=== PATIENT | female | born 1940 | race Two or more races ===

== ENCOUNTER 2016-11-13 21:15 | Observation (INO) | payer MEDICARE, OTHER ==
--- NOTE | 2016-11-13 21:48 | ED PDOC ---
Arrival/HPI - General Chief Complaint: Dizziness/Lightheaded Time Seen by Provider: 11/13/16 21:31 Historian: Patient - History of Present Illness Narrative History of Present Illness (Text): 11/13/16 21:48 Kika Maradiaga is a 76 year old female, whose past medical history includes hypertension, who presents to the Emergency department accompanied by family complaining of near-syncope. Grandson states patient has been generally unwell for the past 15 days, but notes tonight patient was brushing her teeth at home when she began feeling near-syncopal, light-headed, and dizzy. Grandson states patient was also complaining of palpitations and lower extremity weakness/ tingling during the episode. Patient reports a headache currently. Patient denies any fever, shortness of breath, abdominal pain, vomiting, diarrhea, urinary symptoms, back pain, neck pain, vision changes, or any other complaints. PMD: Dr. Alexia Acosta Symptom Onset: Gradual Symptom Course: Worsening Activities at Onset: Rest, Light Context: Home Past Medical History - Provider Review Nursing Documentation Reviewed: Yes - Infectious Disease Hx of Infectious Diseases: None - Reproductive Menopause: Yes - Cardiac Hx Hypertension: Yes - Neurological Hx Dizziness: Yes - Psychiatric Hx Substance Use: No - Surgical History Other/Comment: left breat lump removed - Anesthesia Hx Anesthesia: Yes Hx Anesthesia Reactions: No Hx Malignant Hyperthermia: No Family/Social History - Physician Review Nursing Documentation Reviewed: Yes Family/Social History: Unknown Family HX Smoking Status: Never Smoked Hx Alcohol Use: No Hx Substance Use: No Allergies/Home Meds Allergies/Adverse Reactions: Allergies pcn Adverse Reaction (Uncoded 11/13/16 21:25) RASH Home Medications: Home Meds Medication Instructions Recorded Confirmed Hydrochlorothiazide [Microzide] 12.5 mg PO DAILY 11/13/16 11/15/16 Propranolol HCl [Propranolol HCl 60 mg PO DAILY 11/13/16 11/15/16 ER] Review of Systems - Physician Review All systems were reviewed & negative as marked: Yes - Review of Systems Constitutional: Normal. absent: Fevers Eyes: Normal ENT: Normal Respiratory: Normal. absent: SOB, Cough Cardiovascular: Palpitations, Other (+near-syncope) Gastrointestinal: Normal. absent: Abdominal Pain, Diarrhea, Nausea, Vomiting Genitourinary Female: Normal Musculoskeletal: Other (+lower extremity weakness). absent: Back Pain, Neck Pain Skin: Normal Neurological: Headache, Dizziness Endocrine: Normal Hemo/Lymphatic: Normal Psychiatric: Normal Physical Exam Vital Signs Reviewed: Yes Vital Signs Temp Pulse Resp BP Pulse Ox 11/13/16 23:55 69 18 146/83 96 11/13/16 22:24 83 18 152/95 H 99 11/13/16 21:17 98.3 F 88 19 180/101 H 98 Temperature: Afebrile Blood Pressure: Hypertensive Pulse: Regular Respiratory Rate: Normal Appearance: Positive for: Well-Appearing, Non-Toxic, Comfortable Pain Distress: None Mental Status: Positive for: Alert and Oriented X 3 - Systems Exam Head: Present: Atraumatic, Normocephalic Pupils: Present: PERRL Extroacular Muscles: Present: EOMI Conjunctiva: Present: Normal Ears: Present: Normal, NORMAL TM, Normal Canal. No: Erythema Mouth: Present: Moist Mucous Membranes Pharnyx: Present: Normal. No: ERYTHEMA, EXUDATE, TONSILS ENLARGED Neck: Present: Normal Range of Motion. No: Meningeal Signs, MIDLINE TENDERNESS , Paraspinal Tenderness Respiratory/Chest: Present: Clear to Auscultation, Good Air Exchange. No: Respiratory Distress, Accessory Muscle Use Cardiovascular: Present: Regular Rate and Rhythm, Normal S1, S2. No: Murmurs Abdomen: Present: Normal Bowel Sounds. No: Tenderness, Distention, Peritoneal Signs Back: Present: Normal Inspection. No: CVA Tenderness, Midline Tenderness, Paraspinal Tenderness Upper Extremity: Present: Normal Inspection. No: Cyanosis, Edema Lower Extremity: Present: Normal Inspection. No: Edema Neurological: Present: GCS=15, CN II-XII Intact, Speech Normal Skin: Present: Warm, Dry, Normal Color. No: Rashes Psychiatric: Present: Alert, Oriented x 3, Normal Insight, Normal Concentration Medical Decision Making ED Course and Treatment: 11/13/16 21:48 Impression: 76 year old female complaining of near-syncope, dizziness, generalized weakness , and palpitations. Differential Diagnosis included but are not limited to: near-syncope vs. ACS vs. electrolyte abnormality vs. infectious process. Plan: -- CT Head w/o contrast -- EKG -- Chest X-ray -- Labs, troponin -- Urinalysis -- Reassess and disposition Progress Notes: Reviewed EKG, sinus rhythm at [address]pm[address] PAC. Non-specific ST/T wave changes. 11/13/16 22:57 Reviewed radiology, Chest X-ray shows no acute processes. 11/13/16 23:[address] Head, shows: 1. No acute intracranial hemorrhage or acute territorial type infarct. 2. There are scattered foci of hypodensity within the cerebral white matter, likely representing small vessel ischemic disease in a patient this age. 3. Slight atrophy. 11/14/16 00:28 Case discussed with medical csr, who is aware and agrees with plan. House physician paged. 11/14/16 00:[address] Frederick, who is aware and agrees with plan. Accepts pt in to hospitalist service. Pt will go to Telemetry observation for near-syncope. Pt is no acute distress. Discussed results and hospital observation plan with pt and family, who are aware and verbalize understanding. - Lab Interpretations Microbiology Results: Microbiology Results 11/13/16 23:00 Urine,Clean Catch Urine Culture - Final No Growth (<1,000 CFU/ML) Lab Results: 11/13/16 21:55 11/13/16 21:55 Lab Results 11/13/16 23:00: Urine Color Yellow, Urine Appearance Clear, Urine pH 6.5, Ur Specific [place] 1.010, Urine Protein Negative, Urine Glucose (UA) Negative, Urine Ketones Negative, Urine Blood Trace-lysed H, Urine Nitrate Negative, Urine Bilirubin Negative, Urine Urobilinogen 0.2, Ur Leukocyte Esterase Small H , Urine RBC 0 - 2, Urine WBC 0 - 2, Ur Epithelial Cells None, Urine Bacteria Small 11/13/16 21:55: PT 10.2, INR 0.94, APTT 27.5 11/13/16 21:55: WBC 7.3, RBC 4.04, Hgb 11.9 L, Hct 35.2 L, MCV 87.1, MCH 29.5, MCHC 33.8, RDW 12.7, Plt Count 208, MPV 11.0, Gran % 62.7, Lymph % (Auto) 22.0, Desha % (Auto) 6.5 H, Eos % (Auto) 8.4 H, Baso % (Auto) 0.4, Gran # 4.56, Lymph # 1.6, Desha # 0.5, Eos # 0.6, Baso # 0.03 11/13/16 21:55: Sodium 139, Potassium 3.9, Chloride 100, Carbon Dioxide 27, Anion Gap 16, BUN 31 H, Creatinine 1.0, Est GFR ( Amer) > 60, Est GFR ( Non-Af Amer) 54, Random Glucose 137 H, Calcium 9.6, Total Bilirubin 0.3, AST 29 , ALT 26, Alkaline Phosphatase 99, Troponin I < 0.01, Total Protein 8.2, Albumin 4.5, Globulin 3.7, Albumin/Globulin Ratio 1.2 I have reviewed the lab results: Yes - RAD Interpretation Narrative RAD Interpretations (Text): Chest X-ray shows no acute processes. Radiology Orders: 11/13/16 21:48 HEAD W/O CONTRAST [CT] Stat 11/13/16 21:49 CHEST PORTABLE [RAD] Stat Dog Raiser: ED Physician, Radiologist - EKG Interpretation EKG Interpretation (Text): CT Head shows: Brain: There are scattered foci of hypodensity within the cerebral white matter , likely representing small vessel ischemic disease in a patient this age. The acuity of the white matter disease is indeterminate. The white-hill differentiation is preserved demonstrating no acute territorial type infarct. There is slight prominence of the ventricles and sulci, compatible with atrophy. No acute intracranial hemorrhage is seen. Midline shift: There is no midline shift. Ventricles: See above. Bones/joints: The calvarium demonstrates no evidence for a depressed fracture. Soft tissues: No acute abnormality. Vasculature: There is atherosclerotic calcification of the cavernous internal carotid arteries. Sinuses: Unremarkable as visualized. No acute sinusitis. Mastoid air cells: No mastoid effusion. IMPRESSION: 1. No acute intracranial hemorrhage or acute territorial type infarct. 2. There are scattered foci of hypodensity within the cerebral white matter, likely representing small vessel ischemic disease in a patient this age. 3. Slight atrophy. Interpreted by ED Physician: Yes Type: 12 lead EKG - Medication Orders Current Medication Orders: Discontinued Medications Acetaminophen (Tylenol 325mg Tab) 650 mg PO STAT STA Stop: 11/14/16 20:40 Last Admin: 11/14/16 20:45 Dose: 650 mg Acetaminophen (Tylenol 325mg Tab) 650 mg PO STAT STA Stop: 11/15/16 05:38 Last Admin: 11/15/16 05:54 Dose: 650 mg Amlodipine Besylate (Norvasc) 5 mg PO DAILY [facility] Last Admin: 11/15/16 12:44 Dose: 5 mg Aspirin (Ecotrin) 81 mg PO DAILY [facility] Last Admin: 11/15/16 10:12 Dose: 81 mg Enoxaparin Sodium (Lovenox) 40 mg SC DAILY [facility] PRN Reason: Protocol Last Admin: 11/15/16 10:12 Dose: 40 mg Hydrochlorothiazide (Microzide) 12.5 mg PO DAILY [facility] Last Admin: 11/15/16 10:12 Dose: 12.5 mg Sodium Chloride (Sodium Chloride 0.9%) 500 mls @ 999 mls/hr IV .Q31M STA Stop: 11/14/16 01:59 Last Admin: 11/14/16 02:05 Dose: 999 mls/hr Sodium Chloride (Sodium Chloride 0.9%) 1,000 mls @ 100 mls/hr IV .Q10H [facility] Last Admin: 11/15/16 08:00 Dose: Pantoprazole Sodium (Protonix Ec Tab) 40 mg PO 0600 [facility] Last Admin: 11/15/16 05:05 Dose: 40 mg Potassium Chloride (Potassium Chloride Oral Soln) 40 meq PO ONCE ONE Stop: 11/15/16 08:50 Last Admin: 11/15/16 10:12 Dose: 40 meq Propranolol HCl (Inderal La) 60 mg PO DAILY [facility] Last Admin: 11/15/16 10:20 Dose: 60 mg - Lisaibpatricia Statement The provider has reviewed the documentation as recorded by the Frida Sanchez All medical record entries made by the Frida were at my direction and personally dictated by me. I have reviewed the chart and agree that the record accurately reflects my personal performance of the history, physical exam, medical decision making, and the department course for this patient. I have also personally directed, reviewed, and agree with the discharge instructions and disposition. Disposition/Present on Arrival - Present on Arrival Any Indicators Present on Arrival: No History of DVT/PE: No History of Uncontrolled Diabetes: No Urinary Catheter: No History of Decub. Ulcer: No History Surgical Site Infection Following: None - Disposition Have Diagnosis and Disposition been Completed?: Yes Diagnosis: Near syncope Disposition: HOSPITALIZED Disposition Time: 00:30 Condition: GOOD
[2016-11-13 22:09] LABS: BASO # 0.03 K/mm3 (0.0-2.0); BASO % 0.4 % (0.0-3.0); EOS # 0.6 (0.0-0.7); EOS % 8.4 % (1.5-5.0); GRAN # 4.56 (1.4-6.5); GRAN % 62.7 % (50.0-68.0); HEMOGLOBIN 11.9 gm/dL (12.0-16.0); LYMPH # 1.6 (1.2-3.4); MEAN CELL VOLUME 87.1 fL (80.0-105.0); MEAN CORPUSCULAR HEMOGLOBIN 29.5 pg (25.0-35.0); MEAN CORPUSCULAR HGB CONC 33.8 g/dl (31.0-37.0); MONO # 0.5 (0.1-0.6); MONO % 6.5 % (1.0-6.0); PLATELET COUNT 208 10^3/uL (120.0-450.0); RBC 4.04 10^6/uL (3.5-6.1); RED CELL DISTRIBUTION WIDTH 12.7 % (11.5-14.5); WHITE BLOOD COUNT 7.3 10^3/ul (4.5-11.0)
[2016-11-13 22:19] LABS: INR 0.94 (0.93-1.08); PARTIAL THROMBOPLASTIN TIME 27.5 Seconds (23.7-30.8); PROTHROMBIN TIME 10.2 Seconds (9.9-11.8)
[2016-11-13 22:20] LABS: ALB/GLOB RATIO 1.2 (1.1-1.8); ALBUMIN 4.5 g/dL (3.0-4.8); ALT/SGPT 26 U/L (7-56); AST/SGOT 29 U/L (15-39); BLOOD UREA NITROGEN 31 mg/dL (7-21); CALCIUM 9.6 mg/dL (8.4-10.5); GFR AFRICAN-AMERICAN > 60; GFR NON-AFRICAN AMERICAN 54
[2016-11-13 22:34] LABS: TROPONIN I < 0.01 ng/mL
--- NOTE | 2016-11-13 23:21 | CT ---
EXAM: CT Head Without Intravenous Contrast CLINICAL HISTORY: The patient age is 76 years old and is female; Signs and symptoms; Dizziness; Patient HX: Dizzy Facility exam id and description: Ct heads head w/o contrast TECHNIQUE: Axial computed tomography images of the head/brain without intravenous contrast. This CT exam was performed using one or more of the following dose reduction techniques: automated exposure control, adjustment of the mA and/or kV according to patient size, and/or use of iterative reconstruction technique. EXAM DATE/TIME: 11/13/2016 9:48 PM COMPARISON: No relevant prior studies available. FINDINGS: Brain: There are scattered foci of hypodensity within the cerebral white matter, likely representing small vessel ischemic disease in a patient this age. The acuity of the white matter disease is indeterminate. The white-hill differentiation is preserved demonstrating no acute territorial type infarct. There is slight prominence of the ventricles and sulci, compatible with atrophy. No acute intracranial hemorrhage is seen. Midline shift: There is no midline shift. Ventricles: See above. Bones/joints: The calvarium demonstrates no evidence for a depressed fracture. Soft tissues: No acute abnormality. Vasculature: There is atherosclerotic calcification of the cavernous internal carotid arteries. Sinuses: Unremarkable as visualized. No acute sinusitis. Mastoid air cells: No mastoid effusion. IMPRESSION: 1. No acute intracranial hemorrhage or acute territorial type infarct. 2. There are scattered foci of hypodensity within the cerebral white matter, likely representing small vessel ischemic disease in a patient this age. 3. Slight atrophy.
[2016-11-13 23:25] LABS: PH,URINE 6.5 (4.7-8.0); URINE BILIRUBIN NEGATIVE (NEGATIVE); URINE BLOOD TRACE-LYSED (NEGATIVE); URINE GLUCOSE (UA) NEGATIVE (NEGATIVE); URINE LEUKOCYTE ESTERASE SMALL Leu/uL (NEGATIVE); URINE NITRATE NEGATIVE (NEGATIVE); URINE PROTEIN NEGATIVE mg/dL (<30 mg/dL); URINE UROBILINOGEN 0.2 E.U./dL (<1 E.U./dL)
[2016-11-13 23:30] LABS: URINE APPEARANCE CLEAR (CLEAR); URINE COLOR YELLOW (YELLOW)
[2016-11-14 00:12] LABS: URINE BACTERIA SMALL (NEG); URINE RBC 0 - 2 /hpf (0-2); URINE WBC 0 - 2 /hpf (0-6)
[2016-11-14] MEDS ORDERED: Sodium Chloride 0.9% 500 ML IV STA (01:29)
[2016-11-14] MEDS: Sodium Chloride 0.9% 1,000 ML IV SCH ×4 (02:53→23:00)
--- NOTE | 2016-11-14 04:50 | CP.PCM.HP ---
<KERA YOU - Last Filed: 11/14/16 04:31> History of Present Illness - History of Present Illness History of Present Illness: 76 yo F with pMHx of HTN, migraines, and HLP c/o of near syncopal episode. Pt's daughter was at bedside with the pt. The daughter states that the patient was brushing her teeth at home this evening when she began to feel dizzy, nauseous, and legs felt tingly and weak. Pt denies fall or losing conciousness, but admits to palpatations and felt as if her BP increased during the near syncopal episode. Pt states that she has felt somewhat lightheaded for the past 2 weeks, but not as severe as today. Pt denies any alleviating or aggravating factors. Pt PMD is Dr. Imelda Acosta, who manages pt's HTN. Pt stated that Dr. Acosta recently changed her propranolol from daily to BID as a trial to control her HTN. Pt reports current CABRERA, but denies CP, SOB, n/v/f, abdominal pain, or changes in vision/hearing. pMHx: HTN, migraines, osteoporosis, HLP, prediabetes Surg: left lumpectomy FHx: unknown SH: denied tobacco, EtOH, or illicit drug use All: Penicillin Medications: HCTZ 12.5 mg PO daily Propranolol 60 mg PO BID Aspirin 81 mg daily Crestor (unknown dose) Present on Admission - Present on Admission Any Indicators Present on Admission: No Review of Systems - Constitutional Constitutional: Fatigue, Headache. absent: Anorexia, Chills, Fever, Frequent Falls, Weakness - EENT Eyes: absent: Blurred Vision, Change in Vision, Pain Ears: absent: Decreased Hearing, Tinnitus, Abnormal Hearing Nose/Mouth/Throat: absent: Change in Voice, Odynophagia, Facial Pain, Neck Pain - Cardiovascular Cardiovascular: Palpitations. absent: Chest Pain, Chest Pain at Rest, Diaphoresis, Dyspnea, Leg Edema - Respiratory Respiratory: absent: Cough, Dyspnea, Hemoptysis, Wheezing - Gastrointestinal Gastrointestinal: absent: Abdominal Pain, Change in Bowel Habits - Genitourinary Genitourinary: absent: Dysuria, Hematuria - Musculoskeletal Musculoskeletal: absent: Arthralgias, Muscle Weakness, Stiffness - Integumentary Integumentary: absent: Lesions, Pruritus, Rash - Neurological Neurological: Dizziness, Headaches, Syncope (near syncopal), Tingling (b/l LE). absent: Numbness, Frequent Falls, Memory Loss, Paresthesias, Sensory Deficit - Endocrine Endocrine: absent: Cold Intolorance, Heat Intolorance, Polydipsia, Polyphagia, Polyuria Past Patient History - Infectious Disease Hx of Infectious Diseases: None - Past Social History Smoking Status: Never Smoked - CARDIAC Hx Hypertension: Yes - NEUROLOGICAL Hx Dizziness: Yes - PSYCHIATRIC Hx Substance Use: No - SURGICAL HISTORY Other/Comment: left breat lump removed - ANESTHESIA Hx Anesthesia: Yes Hx Anesthesia Reactions: No Hx Malignant Hyperthermia: No Meds Allergies/Adverse Reactions: Allergies Allergy/AdvReac Type Severity Reaction Status Date / Time pcn AdvReac RASH Uncoded 11/13/16 21:25 Physical Exam - Head Exam Head Exam: ATRAUMATIC, NORMOCEPHALIC - Eye Exam Eye Exam: EOMI, Normal appearance, PERRL - ENT Exam ENT Exam: Mucous Membranes Moist - Neck Exam Neck exam: Positive for: Full Rom - Respiratory Exam Respiratory Exam: Clear to Auscultation Bilateral. absent: Rales, Rhonchi, Wheezes - Cardiovascular Exam Cardiovascular Exam: RRR, +S1, +S2. absent: Diastolic murmur, Gallop, Rubs, Systolic Murmur - GI/Abdominal Exam GI & Abdominal Exam: Normal Bowel Sounds, Soft. absent: Distended, Guarding, Tenderness - Extremities Exam Extremities exam: Positive for: full ROM - Back Exam Back exam: NORMAL INSPECTION - Neurological Exam Neurological exam: Alert, Oriented x3 - Psychiatric Exam Psychiatric exam: Normal Affect - Skin Skin Exam: Dry, Intact, Normal Color, Warm Results - Vital Signs Recent Vital Signs: Last Vital Signs Temp 98.3 F 11/13/16 21:17 Pulse 69 11/13/16 23:55 Resp 18 11/13/16 23:55 BP 146/83 11/13/16 23:55 Pulse Ox 96 11/13/16 23:55 - Labs Result Diagrams: 11/13/16 21:55 11/13/16 21:55 Assessment & Plan - Assessment and Plan (Free Text) Assessment: 76 yo F with pMHx of HTN, migraines, and HLP presents c/o near syncopal episode. Pt will be admitted to r/o any possible underlying causes for near syncopal episode. 1. Near-syncopal episode -R/O cardiogenic vs neurogenic vs electrolyte abnormality -Consult cardiology -EKG shows abnormal rhythm --> repeat EKG in AM -Echocardiogram ordered -Cont ASA -Trend troponin -Monitor electrolytes -Orthostatics pending 2. Dehydration -NS 500ml bolus, then NS@100ml/hr -Monitor BUN/Cr 3. HTN -Cont Propranolol and HCTZ -Check vitals q6h -Heart healthy diet 4. GI/DVT PPx -Lovenox 40 mg SC -Protonix 40 mg PO Pt was seen and discussed in detail with Dr. Frederick. <Jak Frederick - Last Filed: 11/14/16 05:14> Results - Vital Signs Recent Vital Signs: Last Vital Signs Temp 98.3 F 11/13/16 21:17 Pulse 69 11/13/16 23:55 Resp 18 11/13/16 23:55 BP 146/83 11/13/16 23:55 Pulse Ox 96 11/13/16 23:55 - Labs Result Diagrams: 11/13/16 21:55 11/13/16 21:55 Attending/Attestation - Attestation I have personally seen and examined this patient.: Yes I have fully participated in the care of the patient.: Yes I have reviewed all pertinent clinical information: Yes Notes (Text): 11/14/16 05:13 Patient was seen when she was in [id number]. Spoke to daughter. Agree with history , physical examination, assessment and plan.
[2016-11-14 05:43] VITALS: BMI 22.6
[2016-11-14] MEDS: Pantoprazole 40 mg EC Tab PO SCH (05:57)
--- NOTE | 2016-11-14 08:34 | CARD ---
APPROVED REPORT EKG Measurement Heart [id number] [place] [id number] [id number] <Conclusion> Sinus bradycardia LVH by voltage Prolonged QTc
--- NOTE | 2016-11-14 08:48 | CARD ---
APPROVED REPORT EKG Measurement Heart [id number] [place] [id number] [id number] <Conclusion> Sinus rhythm with premature atrial complexes STTW changes c/w ischemia Prolonged QTc
--- NOTE | 2016-11-14 08:51 | RAD ---
HISTORY: dizzy COMPARISON: No prior. FINDINGS: LUNGS: No active pulmonary disease. PLEURA: No significant pleural effusion identified, no pneumothorax apparent. CARDIOVASCULAR: Normal. OSSEOUS STRUCTURES: No significant abnormalities. VISUALIZED UPPER ABDOMEN: Normal. OTHER FINDINGS: None. IMPRESSION: No active disease.
[2016-11-14] MEDS: Enoxaparin 40 mg Syringe SC SCH (10:09)
[2016-11-14] MEDS: Propranolol 60 mg ER Cap PO SCH (11:32)
--- NOTE | 2016-11-14 13:02 | CP.PCM.CON ---
History of Present Illness - History of Present Illness History of Present Illness: 76 year old female, whose past medical history includes hypertension and hyperlipdemia, presents to the Emergency department complaining of dizziness. Grandson states patient has been generally unwell for the past 15 days, complaining of palpitations and lower extremity weakness/tingling during the episode. Patient denies any fever, shortness of breath, abdominal pain, vomiting, diarrhea, urinary symptoms, back pain, neck pain, vision changes, Past Patient History - Infectious Disease Hx of Infectious Diseases: None - Past Social History Smoking Status: Never Smoked - CARDIAC Hx Hypertension: Yes - NEUROLOGICAL Hx Dizziness: Yes - HEENT Hx Cataracts: Yes (b/l cataract sx) - MUSCULOSKELETAL/RHEUMATOLOGICAL Hx Falls: No - PSYCHIATRIC Hx Substance Use: No - SURGICAL HISTORY Other/Comment: left breat lump removed - ANESTHESIA Hx Anesthesia: Yes Hx Anesthesia Reactions: No Hx Malignant Hyperthermia: No Meds Allergies/Adverse Reactions: Allergies Allergy/AdvReac Type Severity Reaction Status Date / Time pcn AdvReac RASH Uncoded 11/13/16 21:25 - Medications Medications: Current Medications Aspirin (Ecotrin) 81 mg PO DAILY [facility] Last Admin: 11/14/16 10:09 Dose: 81 mg Enoxaparin Sodium (Lovenox) 40 mg SC DAILY [facility] PRN Reason: Protocol Last Admin: 11/14/16 10:09 Dose: 40 mg Hydrochlorothiazide (Microzide) 12.5 mg PO DAILY [facility] Last Admin: 11/14/16 10:08 Dose: 12.5 mg Sodium Chloride (Sodium Chloride 0.9%) 1,000 mls @ 100 mls/hr IV .Q10H [facility] Last Admin: 11/14/16 12:32 Dose: Not Given Pantoprazole Sodium (Protonix Ec Tab) 40 mg PO 0600 [facility] Last Admin: 11/14/16 05:57 Dose: 40 mg Propranolol HCl (Inderal La) 60 mg PO DAILY [facility] Last Admin: 11/14/16 11:32 Dose: Not Given Physical Exam - Head Exam Head Exam: NORMAL INSPECTION - Eye Exam Eye Exam: Normal appearance - ENT Exam ENT Exam: Normal Exam - Neck Exam Neck exam: Positive for: Normal Inspection - Respiratory Exam Respiratory Exam: NORMAL BREATHING PATTERN - Cardiovascular Exam Cardiovascular Exam: REGULAR RHYTHM - GI/Abdominal Exam GI & Abdominal Exam: Soft - Extremities Exam Extremities exam: Positive for: normal inspection Results - Vital Signs Recent Vital Signs: Last Vital Signs Temp 98.6 F 11/14/16 11:42 Pulse 55 L 11/14/16 11:42 Resp 18 11/14/16 11:42 BP 132/80 11/14/16 11:42 Pulse Ox 99 11/14/16 06:00 - Labs Result Diagrams: 11/13/16 21:55 11/13/16 21:55 Labs: Laboratory Results - last 24 hr 11/14/16 11:30 TSH 3rd Generation 5.95 H Assessment & Plan - Assessment and Plan (Free Text) Assessment: Dizziness and near Syncope EKG NSR, NS ST/T changes Head CT scan Small vessel disease HTN Hyperlipdemia R/O hypothyroidism Plan: Cont Aspirin (Ecotrin) 81 mg PO DAILY [facility] Enoxaparin Sodium (Lovenox) 40 mg SC DAILY [facility] Hydrochlorothiazide (Microzide) 12.5 mg PO DAILY [facility] Sodium Chloride (Sodium Chloride 0.9%) 1,000 mls @ 100 mls/hr IV .Q10H [facility] Pantoprazole Sodium (Protonix Ec Tab) 40 mg PO 0600 [facility] Propranolol HCl (Inderal La) 60 mg PO DAILY [facility] Tele monitering Echo Carotid doppler
--- NOTE | 2016-11-14 13:38 | CP.PCM.CON ---
History of Present Illness - History of Present Illness History of Present Illness: NEURO CONSULT NOTE: 11/14/16 CHIEF COMPLAINT: DIZZINESS. HPI: Mrs. Manley is a 76 year old woman with pMHx of HTN, migraines, and HLP c/o of near syncopal episode. Pt's daughter was at bedside with the pt. The daughter states that the patient was brushing her teeth at home this evening when she began to feel dizzy, nauseous, and legs felt tingly and weak. Pt denies fall or losing conciousness, but admits to palpatations and felt as if her BP increased during the near syncopal episode. Pt states that she has felt somewhat lightheaded for the past 2 weeks, but not as severe as today. Pt denies any alleviating or aggravating factors. Pt PMD is Dr. Imelda Acosta, who manages pt's HTN. Pt stated that Dr. Acosta recently changed her propranolol from daily to BID as a trial to control her hypertension. NEURO EXAM IS NON-FOCAL. CURRENTLY NO MORE DIZZINESS. HER INITIAL BP WAS SYSTOLICALLY ELEVATED, BUT NOW STABILIZED. ROS: 14 POINT REVIEW OF SYMPTOMS IS NEGATIVE PER HPI. ALLERGIES: NONE SOCIAL HISTORY: NO ILLICIT DRUG USE, SMOKING, OR ETOH USE. FAMILY: NON CONTRIBUTORY. MEDICATIONS: REVIEWED BY NURSE'S RECONCILIATION SHEET. PAST MEDICAL HISTORY: HEADACHES PHYSICAL EXAM: VITAL SIGNS: REVIEWED BY THE CHART GENERAL EXAM: PATIENT SEEN IN BED, IN NO ACUTE DISTRESS HEENT: PERRLA, EOMI, NECK SUPPLE, NO JVD, NO ADENOPATHY CVS: S1, S2, RRR, NO MURMURS NOTED LUNGS: CLEAR TO AUSCULTATION, NO ADVENTITIOUS SOUNDS ABDOMEN: SOFT AND NONTENDER EXTREMITIES: NO CLUBBING OR CYANOSIS. PP 2+ B/L NEURO: PT IS ALERT AND ORIENTED TO PERSON, PLACE, AND YEAR. , RECALL TO 5 MINUTES 1/3, SPEECH IS FLUENT WITHOUT ERRORS, CN II-XII INTACT, MOTOR EXAM: NORMAL TONE, NORMAL BULK OF MUSCLE, MOVES ALL EXTREMITIES EQUALLY, NO PRONATOR DRIFT SEEN. SENSORY EXAM: LIGHT TOUCH, PIN PRICK UP TO CALVES B/L, PROPRIOCEPTION , VIBRATION ARE INTACT B/L DEEP TENDON REFLEXES: 2+ THROUGHOUT. COORDINATION: FINGER TO NOSE IS INTACT. HEEL TO PEDRAZA IS INTACT GAIT: NORMAL. LABS: REVIEWED BY THE CHART. ASSESSMENT AND PLAN: Mrs. Manley is a 76 year old woman with pMHx of HTN, migraines, and HLP c/o of near syncopal episode. Pt's daughter was at bedside with the pt. The daughter states that the patient was brushing her teeth at home this evening when she began to feel dizzy, nauseous, and legs felt tingly and weak. Pt denies fall or losing conciousness, but admits to palpatations and felt as if her BP increased during the near syncopal episode. Pt states that she has felt somewhat lightheaded for the past 2 weeks, but not as severe as today. Pt denies any alleviating or aggravating factors. Pt PMD is Dr. Imelda Acosta, who manages pt's HTN. Pt stated that Dr. Acosta recently changed her propranolol from daily to BID as a trial to control her hypertension. NEURO EXAM IS NON-FOCAL. CURRENTLY NO MORE DIZZINESS. IMPRESSION:DIZZINESS IS MORE SECONDARY TO HTN URGENCY. 1. ASA 81 MG FOR STROKE PREVENTION 2. KEEP SBP BTW 130-140 MM HG 3. CAROTID DOPPLER AND F/U WITH CARDIOLOGY. SHE IS NEUROLOGICALLY STABLE. THANK YOU. Cathy PEACOCK MD Past Patient History - Infectious Disease Hx of Infectious Diseases: None - Past Social History Smoking Status: Never Smoked - CARDIAC Hx Hypertension: Yes - NEUROLOGICAL Hx Dizziness: Yes - HEENT Hx Cataracts: Yes (b/l cataract sx) - MUSCULOSKELETAL/RHEUMATOLOGICAL Hx Falls: No - PSYCHIATRIC Hx Substance Use: No - SURGICAL HISTORY Other/Comment: left breat lump removed - ANESTHESIA Hx Anesthesia: Yes Hx Anesthesia Reactions: No Hx Malignant Hyperthermia: No Meds Allergies/Adverse Reactions: Allergies Allergy/AdvReac Type Severity Reaction Status Date / Time pcn AdvReac RASH Uncoded 11/13/16 21:25 - Medications Medications: Current Medications Aspirin (Ecotrin) 81 mg PO DAILY [facility] Last Admin: 11/14/16 10:09 Dose: 81 mg Enoxaparin Sodium (Lovenox) 40 mg SC DAILY [facility] PRN Reason: Protocol Last Admin: 11/14/16 10:09 Dose: 40 mg Hydrochlorothiazide (Microzide) 12.5 mg PO DAILY [facility] Last Admin: 11/14/16 10:08 Dose: 12.5 mg Sodium Chloride (Sodium Chloride 0.9%) 1,000 mls @ 100 mls/hr IV .Q10H [facility] Last Admin: 11/14/16 12:32 Dose: Not Given Pantoprazole Sodium (Protonix Ec Tab) 40 mg PO 0600 [facility] Last Admin: 11/14/16 05:57 Dose: 40 mg Propranolol HCl (Inderal La) 60 mg PO DAILY [facility] Last Admin: 11/14/16 11:32 Dose: Not Given Results - Vital Signs Recent Vital Signs: Last Vital Signs Temp 98.6 F 11/14/16 11:42 Pulse 55 L 11/14/16 11:42 Resp 18 11/14/16 11:42 BP 132/80 11/14/16 11:42 Pulse Ox 99 11/14/16 06:00 - Labs Result Diagrams: 11/13/16 21:55 11/13/16 21:55 Labs: Laboratory Results - last 24 hr 11/14/16 11:30 TSH 3rd Generation 5.95 H
--- NOTE | 2016-11-14 18:46 | US ---
PROCEDURE: Bilateral carotid artery duplex ultrasound HISTORY: Carotid stenosis PHYSICIAN(S): Jamari Sosa MD. TECHNIQUE: Duplex sonography and color-flow Doppler were used to evaluate the carotid bifurcations and limited segments of the vertebral arteries bilaterally. FINDINGS: There is mild smooth hypoechoic plaque noted at the carotid bifurcations bilaterally. The peak systolic velocity in the proximal right internal carotid artery is 76 cm/sec. This corresponds to a 20 to 39% proximal right ICA stenosis. Normal systolic velocities are noted in the proximal right external carotid artery. There is antegrade flow in the right vertebral artery. The peak systolic velocity in the proximal left internal carotid artery is 72 cm/sec. This corresponds to a 20 to 39% proximal left ICA stenosis. Normal systolic velocities are noted in the proximal left external carotid artery. There is antegrade flow in the left vertebral artery. IMPRESSION: 1. Bilateral 20-39% proximal ICA stenoses. 2. Antegrade flow in both vertebral arteries.
[2016-11-15 00:03] VITALS: RESP 20
[2016-11-15] MEDS: Pantoprazole 40 mg EC Tab PO SCH (05:05)
[2016-11-15] MEDS: Sodium Chloride 0.9% 1,000 ML IV SCH ×2 (05:55→08:00)
[2016-11-15 06:16] VITALS: O2SAT 99
[2016-11-15 07:37] LABS: HEMOGLOBIN 11.4 gm/dL (12.0-16.0); MEAN CELL VOLUME 87.1 fL (80.0-105.0); MEAN CORPUSCULAR HEMOGLOBIN 28.9 pg (25.0-35.0); MEAN CORPUSCULAR HGB CONC 33.1 g/dl (31.0-37.0); RBC 3.95 10^6/uL (3.5-6.1); RED CELL DISTRIBUTION WIDTH 12.7 % (11.5-14.5); WHITE BLOOD COUNT 5.1 10^3/ul (4.5-11.0)
[2016-11-15 07:55] LABS: ALB/GLOB RATIO 1.2 (1.1-1.8); ALBUMIN 3.7 g/dL (3.0-4.8); ALT/SGPT 22 U/L (7-56); AST/SGOT 23 U/L (15-39); BLOOD UREA NITROGEN 14 mg/dL (7-21); CALCIUM 8.1 mg/dL (8.4-10.5); GFR AFRICAN-AMERICAN > 60; GFR NON-AFRICAN AMERICAN > 60
[2016-11-15 08:04] LABS: TROPONIN I < 0.01 ng/mL
[2016-11-15 08:07] LABS: FREE T4 1.27 ng/dL (0.78-2.19)
[2016-11-15] MEDS ORDERED: Potassium Chloride 40 mEq/30 ml LIQ UD PO ONE (08:49)
[2016-11-15] MEDS: Enoxaparin 40 mg Syringe SC SCH (10:12)
[2016-11-15] MEDS: Propranolol 60 mg ER Cap PO SCH (10:20)
[2016-11-15 12:48] VITALS: BP 156/89
[2016-11-15 13:30] VITALS: TEMP 98.3
--- NOTE | 2016-11-15 16:35 | CP.PCM.DIS ---
<KERA YOU - Last Filed: 11/15/16 16:32> Provider - Provider Date of Admission: 11/14/16 00:32 Attending physician: Mirella Whitfield MD Primary care physician: Jeffrey Acosta MD Consults: Neurology, cardiology Time Spent in preparation of Discharge (in minutes): 45 Diagnosis - Discharge Diagnosis (1) Near syncope Status: Acute Hospital Course - Lab Results Lab Results: Most Recent Lab Values WBC 5.1 10^3/ul (4.5-11.0) D 11/15/16 07:00 RBC 3.95 10^6/uL (3.5-6.1) 11/15/16 07:00 Hgb 11.4 gm/dL (12.0-16.0) L 11/15/16 07:00 Hct 34.4 % (36.0-48.0) L 11/15/16 07:00 MCV 87.1 fL (80.0-105.0) 11/15/16 07:00 MCH 28.9 pg (25.0-35.0) 11/15/16 07:00 MCHC 33.1 g/dl (31.0-37.0) 11/15/16 07:00 RDW 12.7 % (11.5-14.5) 11/15/16 07:00 Plt Count 162 10^3/uL (120.0-450.0) 11/15/16 07:00 MPV 11.0 fl (7.0-11.0) 11/15/16 07:00 Gran % 62.7 % (50.0-68.0) 11/13/16 21:55 Lymph % (Auto) 22.0 % (22.0-35.0) 11/13/16 21:55 [place] % (Auto) 6.5 % (1.0-6.0) H 11/13/16 21:55 Eos % (Auto) 8.4 % (1.5-5.0) H 11/13/16 21:55 Baso % (Auto) 0.4 % (0.0-3.0) 11/13/16 21:55 Gran # 4.56 (1.4-6.5) 11/13/16 21:55 Lymph # 1.6 (1.2-3.4) 11/13/16 21:55 [place] # 0.5 (0.1-0.6) 11/13/16 21:55 Eos # 0.6 (0.0-0.7) 11/13/16 21:55 Baso # 0.03 K/mm3 (0.0-2.0) 11/13/16 21:55 PT 10.2 Seconds (9.9-11.8) 11/13/16 21:55 INR 0.94 (0.93-1.08) 11/13/16 21:55 APTT 27.5 Seconds (23.7-30.8) 11/13/16 21:55 Sodium 142 mmol/L (132-148) 11/15/16 07:00 Potassium 3.4 mmol/L (3.6-5.0) L 11/15/16 07:00 Chloride 108 mmol/L (98-107) H 11/15/16 07:00 Carbon Dioxide 25 mmol/L (21-33) 11/15/16 07:00 Anion Gap 12 (10-20) 11/15/16 07:00 BUN 14 mg/dL (7-21) 11/15/16 07:00 Creatinine 0.7 mg/dL (0.5-1.4) 11/15/16 07:00 Est GFR ( Amer) > 60 11/15/16 07:00 Est GFR (Non-Af Amer) > 60 11/15/16 07:00 Random Glucose 92 mg/dL (70-110) 11/15/16 07:00 Calcium 8.1 mg/dL (8.4-10.5) L 11/15/16 07:00 Total Bilirubin 0.6 mg/dL (0.2-1.3) 11/15/16 07:00 AST 23 U/L (15-39) 11/15/16 07:00 ALT 22 U/L (7-56) 11/15/16 07:00 Alkaline Phosphatase 68 U/L (38-133) 11/15/16 07:00 Troponin I < 0.01 ng/mL 11/15/16 07:00 Total Protein 6.7 g/dL (5.8-8.3) 11/15/16 07:00 Albumin 3.7 g/dL (3.0-4.8) 11/15/16 07:00 Globulin 3.0 gm/dL 11/15/16 07:00 Albumin/Globulin Ratio 1.2 (1.1-1.8) 11/15/16 07:00 Free T4 1.27 ng/dL (0.78-2.19) 11/15/16 07:00 TSH 3rd Generation 5.33 mIU/mL (0.46-4.68) H 11/15/16 07:00 Urine Color Yellow (YELLOW) 11/13/16 23:00 Urine Appearance Clear (CLEAR) 11/13/16 23:00 Urine pH 6.5 (4.7-8.0) 11/13/16 23:00 Ur Specific [place] 1.010 (1.005-1.035) 11/13/16 23:00 Urine Protein Negative mg/dL (<30 mg/dL) 11/13/16 23:00 Urine Glucose (UA) Negative mg/dL (NEGATIVE) 11/13/16 23:00 Urine Ketones Negative mg/dL (NEGATIVE) 11/13/16 23:00 Urine Blood Trace-lysed (NEGATIVE) H 11/13/16 23:00 Urine Nitrate Negative (NEGATIVE) 11/13/16 23:00 Urine Bilirubin Negative (NEGATIVE) 11/13/16 23:00 Urine Urobilinogen 0.2 E.U./dL (<1 E.U./dL) 11/13/16 23:00 Ur Leukocyte Esterase Small Marisa/uL (NEGATIVE) H 11/13/16 23:00 Urine RBC 0 - 2 /hpf (0-2) 11/13/16 23:00 Urine WBC 0 - 2 /hpf (0-6) 11/13/16 23:00 Ur Epithelial Cells None /hpf (0-5) 11/13/16 23:00 Urine Bacteria Small (NEG) 11/13/16 23:00 - Hospital Course Hospital Course: 76 yo F with pMHx of HTN, migraines, and HLP c/o of near syncopal episode. Pt's daughter was at bedside with the pt. The daughter states that the patient was brushing her teeth at home this evening when she began to feel dizzy, nauseous, and legs felt tingly and weak. Pt denies fall or losing conciousness, but admits to palpatations and felt as if her BP increased during the near syncopal episode. Pt states that she has felt somewhat lightheaded for the past 2 weeks, but not as severe as today. Pt denies any alleviating or aggravating factors. Pt PMD is Dr. Imelda Acosta, who manages pt's HTN. Pt stated that Dr. Acosta recently changed her propranolol from daily to BID as a trial to control her HTN. Basic labs, head CT and CXR were obtained, which were unremarkable. Cardiology was consulted and recommended tele monitoring, carotid Doppler, and echocardiogram. Carotid Doppler showed 20-39% occlusion in b/l ICA. After echo, cardiology stated pt was clear from their stand point. Neurology was consulted and recommended continuing ASA, HTN control, but stated that she is neurologically stable. Today, pt was seen and examined at bedside. Pt denied any acute overnight events. Pt reported minor headache. Pt denied any dizziness, nausea, or near syncopal events. Pt on HCTZ and propranolol for HTN, however her BP elevates overnight. Pt was given Norvasc in addition to her home HTN medications. TSH was found to be 5.9, then 5.3. Pt to f/u with PMD for repeat TFT's for mildly elevated TSH. Pt denied CP, SOB, n/v/f, and abdominal pain. Discharge Exam - Head Exam Head Exam: NORMAL INSPECTION - Eye Exam Eye Exam: EOMI, Normal appearance, PERRL Pupil Exam: NORMAL ACCOMODATION - ENT Exam ENT Exam: Mucous Membranes Moist - Neck Exam Neck exam: Full Rom - Respiratory Exam Respiratory Exam: NORMAL BREATHING PATTERN. absent: Rales, Rhonchi, Wheezes - Cardiovascular Exam Cardiovascular Exam: RRR, +S1, +S2. absent: Diastolic murmur, Gallop, Rubs, Systolic Murmur - GI/Abdominal Exam GI & Abdominal Exam: Soft. absent: Distended, Guarding, Rebound, Tenderness - Extremities Exam Extremities exam: full ROM - Neurological Exam Neurological exam: Alert, CN II-XII Intact, Oriented x3 - Psychiatric Exam Psychiatric exam: Normal Affect - Skin Skin Exam: Dry, Intact, Normal Color, Warm Discharge Plan - Discharge Medications Prescriptions: amLODIPine [Norvasc] 5 mg PO DAILY #30 tab Aspirin [Ecotrin] 81 mg PO DAILY #30 - Follow Up Plan Condition: GOOD Disposition: HOME/ ROUTINE Patient education suggested?: Yes Instructions: Heart Healthy Diet (DC), Syncope (DC), Hypertensive Crisis (DC) Additional Instructions: If symptoms reoccur please return. Take medicines as prescribed. Mildly elevated TSH, F/u with PMD in 4-6 weeks for TFTs. F/u with PMD. F/u with neurology and cardiology as needed. Referrals: Jeffrey Acosta MD [Primary Care Provider] - Derrick Mcfarlane MD [Staff Provider] - Lonny Avila MD [Staff Provider] - <Mirella Whitfield - Last Filed: 11/15/16 17:20> Provider - Provider Date of Admission: 11/14/16 00:32 Attending physician: Mirella Whitfield MD Primary care physician: Jeffrey Acosta MD Hospital Course - Lab Results Lab Results: Most Recent Lab Values WBC 5.1 10^3/ul (4.5-11.0) D 11/15/16 07:00 RBC 3.95 10^6/uL (3.5-6.1) 11/15/16 07:00 Hgb 11.4 gm/dL (12.0-16.0) L 11/15/16 07:00 Hct 34.4 % (36.0-48.0) L 11/15/16 07:00 MCV 87.1 fL (80.0-105.0) 11/15/16 07:00 MCH 28.9 pg (25.0-35.0) 11/15/16 07:00 MCHC 33.1 g/dl (31.0-37.0) 11/15/16 07:00 RDW 12.7 % (11.5-14.5) 11/15/16 07:00 Plt Count 162 10^3/uL (120.0-450.0) 11/15/16 07:00 MPV 11.0 fl (7.0-11.0) 11/15/16 07:00 Gran % 62.7 % (50.0-68.0) 11/13/16 21:55 Lymph % (Auto) 22.0 % (22.0-35.0) 11/13/16 21:55 [place] % (Auto) 6.5 % (1.0-6.0) H 11/13/16 21:55 Eos % (Auto) 8.4 % (1.5-5.0) H 11/13/16 21:55 Baso % (Auto) 0.4 % (0.0-3.0) 11/13/16 21:55 Gran # 4.56 (1.4-6.5) 11/13/16 21:55 Lymph # 1.6 (1.2-3.4) 11/13/16 21:55 [place] # 0.5 (0.1-0.6) 11/13/16 21:55 Eos # 0.6 (0.0-0.7) 11/13/16 21:55 Baso # 0.03 K/mm3 (0.0-2.0) 11/13/16 21:55 PT 10.2 Seconds (9.9-11.8) 11/13/16 21:55 INR 0.94 (0.93-1.08) 11/13/16 21:55 APTT 27.5 Seconds (23.7-30.8) 11/13/16 21:55 Sodium 142 mmol/L (132-148) 11/15/16 07:00 Potassium 3.4 mmol/L (3.6-5.0) L 11/15/16 07:00 Chloride 108 mmol/L (98-107) H 11/15/16 07:00 Carbon Dioxide 25 mmol/L (21-33) 11/15/16 07:00 Anion Gap 12 (10-20) 11/15/16 07:00 BUN 14 mg/dL (7-21) 11/15/16 07:00 Creatinine 0.7 mg/dL (0.5-1.4) 11/15/16 07:00 Est GFR ( Amer) > 60 11/15/16 07:00 Est GFR (Non-Af Amer) > 60 11/15/16 07:00 Random Glucose 92 mg/dL (70-110) 11/15/16 07:00 Calcium 8.1 mg/dL (8.4-10.5) L 11/15/16 07:00 Total Bilirubin 0.6 mg/dL (0.2-1.3) 11/15/16 07:00 AST 23 U/L (15-39) 11/15/16 07:00 ALT 22 U/L (7-56) 11/15/16 07:00 Alkaline Phosphatase 68 U/L (38-133) 11/15/16 07:00 Troponin I < 0.01 ng/mL 11/15/16 07:00 Total Protein 6.7 g/dL (5.8-8.3) 11/15/16 07:00 Albumin 3.7 g/dL (3.0-4.8) 11/15/16 07:00 Globulin 3.0 gm/dL 11/15/16 07:00 Albumin/Globulin Ratio 1.2 (1.1-1.8) 11/15/16 07:00 Free T4 1.27 ng/dL (0.78-2.19) 11/15/16 07:00 TSH 3rd Generation 5.33 mIU/mL (0.46-4.68) H 11/15/16 07:00 Urine Color Yellow (YELLOW) 11/13/16 23:00 Urine Appearance Clear (CLEAR) 11/13/16 23:00 Urine pH 6.5 (4.7-8.0) 11/13/16 23:00 Ur Specific [place] 1.010 (1.005-1.035) 11/13/16 23:00 Urine Protein Negative mg/dL (<30 mg/dL) 11/13/16 23:00 Urine Glucose (UA) Negative mg/dL (NEGATIVE) 11/13/16 23:00 Urine Ketones Negative mg/dL (NEGATIVE) 11/13/16 23:00 Urine Blood Trace-lysed (NEGATIVE) H 11/13/16 23:00 Urine Nitrate Negative (NEGATIVE) 11/13/16 23:00 Urine Bilirubin Negative (NEGATIVE) 11/13/16 23:00 Urine Urobilinogen 0.2 E.U./dL (<1 E.U./dL) 11/13/16 23:00 Ur Leukocyte Esterase Small Marisa/uL (NEGATIVE) H 11/13/16 23:00 Urine RBC 0 - 2 /hpf (0-2) 11/13/16 23:00 Urine WBC 0 - 2 /hpf (0-6) 11/13/16 23:00 Ur Epithelial Cells None /hpf (0-5) 11/13/16 23:00 Urine Bacteria Small (NEG) 11/13/16 23:00 Attending/Attestation - Attestation I have personally seen and examined this patient.: Yes I have fully participated in the care of the patient.: Yes I have reviewed all pertinent clinical information, including history, physical exam and plan: Yes Notes (Text): 11/15/16 17:15 76 year old female with past medical history of hypertension, migraines and dyslipidemia who presented with complaint of dizziness and near syncopal episode at home. In ER she was found to be hypertensive. Orthostatics were negative. CT head was reviewed. Carotid dopplers showed 20-39% bilateral ICA occlusion. She is on aspirin and statin. She is on propanolol and HCTZ and started on norvasc 5 mg for bp optimization. Echocardiogram was done with report pending. TSH was mildly elevated with normal free T4. She was seen by both neurology and cardiology. Potassium was repleted today. Overall her symptoms and blood pressure have improved. She is discharged home to follow up with pmd Dr. Acosta. Follow up with neurologist. Continue with aspirin and statin. Norvasc added for hypertension. Recommended to repeat TFTs in 4-6 weeks with pmd. Mirella Whitfield MD Hospitalist.
--- NOTE | 2016-11-15 16:38 | CP.PCM.PN ---
Subjective - Date & Time of Evaluation Date of Evaluation: 11/15/16 Time of Evaluation: 08:45 - Subjective Subjective: denies Chest pain, denies SOB, dizzyness improved. Objective - Vital Signs/Intake and Output Vital Signs (last 24 hours): Temp Pulse Resp BP Pulse Ox 98.3 F 63 20 156/89 H 99 11/15/16 12:00 11/15/16 12:44 11/15/16 12:00 11/15/16 12:44 11/15/16 06:00 Intake and Output: 11/15/16 11/15/16 06:59 18:59 Intake Total 1300 Output Total 0 Balance 1300 - Medications Medications: Current Medications Amlodipine Besylate (Norvasc) 5 mg PO DAILY [facility] Last Admin: 11/15/16 12:44 Dose: 5 mg Aspirin (Ecotrin) 81 mg PO DAILY [facility] Last Admin: 11/15/16 10:12 Dose: 81 mg Enoxaparin Sodium (Lovenox) 40 mg SC DAILY [facility] PRN Reason: Protocol Last Admin: 11/15/16 10:12 Dose: 40 mg Hydrochlorothiazide (Microzide) 12.5 mg PO DAILY [facility] Last Admin: 11/15/16 10:12 Dose: 12.5 mg Pantoprazole Sodium (Protonix Ec Tab) 40 mg PO 0600 [facility] Last Admin: 11/15/16 05:05 Dose: 40 mg Propranolol HCl (Inderal La) 60 mg PO DAILY [facility] Last Admin: 11/15/16 10:20 Dose: 60 mg - Labs Labs: 11/15/16 07:00 11/15/16 07:00 PT 10.2 Seconds (9.9-11.8) 11/13/16 21:55 INR 0.94 (0.93-1.08) 11/13/16 21:55 APTT 27.5 Seconds (23.7-30.8) 11/13/16 21:55 - Constitutional Appears: Non-toxic - Head Exam Head Exam: ATRAUMATIC - Eye Exam Eye Exam: Conjunctival injection - ENT Exam ENT Exam: Mucous Membranes Dry - Neck Exam Neck Exam: Full ROM - Respiratory Exam Respiratory Exam: Clear to Ausculation Bilateral - Cardiovascular Exam Cardiovascular Exam: REGULAR RHYTHM - GI/Abdominal Exam GI & Abdominal Exam: Soft - Rectal Exam Rectal Exam: Deferred - Exam External exam: NORMAL EXTERNAL EXAM Assessment and Plan - Assessment and Plan (Free Text) Assessment: 76 year old female with Pmhx HTN admiited with uncontrolled HTN Dizzyness near syncope No evidene of ACS anemia hypokalemia borderline elevated TSH Plan: aGGRESSIVE CONTROL OF bp f/U Echo Medical treatment no evidene of ACS. supplement K Monitor H & H consider GI W/u as out pt monitor TSH in 4-6 weeks before supplementing Levoxyl.
[2016-11-15 17:00] VITALS: PULSE 54
--- NOTE | 2016-11-15 19:06 | CARD ---
APPROVED REPORT EXAM: Two-dimensional and M-mode echocardiogram with Doppler and color Doppler. INDICATION Syncope 2D DIMENSIONS Left Atrium (2D)4.1 (1.6-4.0cm)IVSd1.0 (0.7-1.1cm) LVDd4.5 (3.9-5.9cm)PWd1.0 (0.7-1.1cm) LVDs2.7 (2.5-4.0cm)FS (%) 40.2 % LVEF (%)71.0 (>50%) M-Mode DIMENSIONS Aortic Root2.90 (2.2-3.7cm)Aortic Cusp Exc.1.70 (1.5-2.0cm) Aortic Valve AoV Peak Vgbkjezy699.0cm/Jamarcus Peak GR.10mmHgAI P 1/2 [id number] Mitral Valve MV E Ytfazhgn40.0cm/sMV A Hxjepsou12.5cm/sE/A ratio1.0 TDI E/Lateral E'0.0E/Medial E'0.0 Tricuspid Valve TR Peak [id number]/sRAP [id number] Peak Gr.30mmHg [id number] LEFT VENTRICLE The left ventricle is normal size. There is mild concentric left ventricular hypertrophy. The left ventricular function is normal. There is normal LV segmental wall motion. Transmitral Doppler flow pattern is Grade II-pseudonormal filling dynamics. No left ventricle thrombus noted on this study. There is no ventricular septal defect visualized. There is no left ventricular aneurysm. There is no mass noted in the left ventricle. RIGHT VENTRICLE The right ventricle is normal size. There is normal right ventricular wall thickness. The right ventricular systolic function is normal. ATRIA The left atrium is mildly dilated. The right atrium size is normal. The interatrial septum is intact with no evidence for an atrial septal defect. AORTIC VALVE The aortic valve is thickened but opens well. There is mild to moderate aortic regurgitation. There is no aortic valvular stenosis. There is no aortic valvular vegetation. MITRAL VALVE The mitral valve is thickened but opens well. Mitral regurgitation is mild to moderate. There is no mitral valve stenosis. There is no evidence of mitral valve prolapse. TRICUSPID VALVE The tricuspid valve leaflets are thickened , but open well. There is mild to moderate tricuspid regurgitation.RVSP-40 mmof ghg. There is no tricuspid valve stenosis. There is no tricuspid valve prolapse or vegetation. PULMONIC VALVE The pulmonary valve is normal in structure. There is mild pulmonic valvular regurgitation. There is no pulmonic valvular stenosis. GREAT VESSELS The aortic root is normal in size. The ascending aorta is normal in size. The pulmonary artery is normal. The IVC is normal in size and collapses >50% with inspiration. PERICARDIAL EFFUSION There is no pleural effusion. There is no pericardial effusion. <Conclusion> The left ventricle is normal size. The left ventricular function is normal. There is normal LV segmental wall motion. There is mild to moderate aortic regurgitation. Mitral regurgitation is mild to moderate. There is mild to moderate tricuspid regurgitation.RVSP-40 mmof ghg. There is no pericardial effusion.
== END 2016-11-15 19:40 | disposition home or self-care (01) ==
LOC: ED 21:15 → ERH 11-14 00:32 → 2RSO 11-14 01:30
PROVIDERS: ADMIT Internal Medicine; ATTEND Internal Medicine
DX: I16.0 Hypertensive urgency (principal); I65.23 Occlusion and stenosis of bilateral carotid arteries; I10 Essential (primary) hypertension; R00.2 Palpitations; E86.0 Dehydration; E78.5 Hyperlipidemia, unspecified; G43.909 Migraine, unspecified, not intractable, without status migrainosus; M81.0 Age-related osteoporosis without current pathological fracture; R73.03 Prediabetes; E87.6 Hypokalemia; D64.9 Anemia, unspecified
CPT/HCPCS: 36415; 70450; 71010; 80053; 81001; 84439; 84443; 84484; 85025; 85027; 85610; 85730; 87086; 93005; 93306; 93880; 99285; G0378; J1650; J3480; J7040

== ENCOUNTER 2016-11-25 12:48 | Observation (INO) | payer MEDICARE, OTHER ==
[2016-11-25 12:49] VITALS: BMI 22.6
[2016-11-25] MEDS ORDERED: Famotidine 20mg/50ml 20 MG/50 ML BAG IVPB STA (13:10)
--- NOTE | 2016-11-25 13:14 | ED PDOC ---
Arrival/HPI - General Time Seen by Provider: 11/25/16 12:52 Historian: Patient - History of Present Illness Narrative History of Present Illness (Text): 11/25/16 13:07 A 76 year old female, whose past medical history includes hypertension, hyperlipidemia, migraine and arthritis, presents to the emergency department complaining of near-syncope 1 hour prior to arrival. Patient notes palpitations and a burning sensation in her episgastric region. She reports this morning she had numbness in her big toes, which occurs often. Patient recently started new blood pressure medication approximately 10 days ago. Patient denies any fever, chills, nausea, vomiting, diarrhea, constipation, appetite changes, chest pain, shortness of breath or any other complaints. PMD: Dr. 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) Symptom Course: Unchanged Quality: Other Context: Home Past Medical History - Provider Review Nursing Documentation Reviewed: Yes - Infectious Disease Hx of Infectious Diseases: None - Cardiac Hx Cardiac Disorders: Yes Hx Hypertension: Yes - Pulmonary Hx Respiratory Disorders: No - Neurological Hx Neurological Disorder: Yes Hx Dizziness: Yes - HEENT Hx HEENT Disorder: Yes Hx Cataracts: Yes (b/l cataract sx) - Renal Hx Renal Disorder: No - Endocrine/Metabolic Hx Endocrine Disorders: No - Hematological/Oncological Hx Blood Disorders: No - Integumentary Hx Dermatological Disorder: No Hx Basal Cell Carcinoma: No - Musculoskeletal/Rheumatological Hx Musculoskeletal Disorders: No Hx Falls: No - Gastrointestinal Hx Gastrointestinal Disorders: No - Genitourinary/Gynecological Hx Genitourinary Disorders: No - Psychiatric Hx Psychophysiologic Disorder: Yes Hx Anxiety: Yes Hx Substance Use: No - Surgical History Other/Comment: left breat lump removed - Anesthesia Hx Anesthesia: Yes Hx Anesthesia Reactions: No Hx Malignant Hyperthermia: No Family/Social History - Physician Review Nursing Documentation Reviewed: Yes Family/Social History: No Known Family HX Smoking Status: Never Smoked Hx Alcohol Use: No Hx Substance Use: No Allergies/Home Meds Allergies/Adverse Reactions: Allergies Penicillins Allergy (Verified 11/25/16 12:55) RASH pcn Allergy (Uncoded 11/25/16 12:55) RASH Home Medications: Home Meds Medication Instructions Recorded Confirmed Aspirin [Aspirin Chewable] 81 mg PO DAILY 11/25/16 11/25/16 Lisinopril/Hydrochlorothiazide 1 tab PO DAILY 11/25/16 11/25/16 [Lisinopril-Hctz 20-25 mg Tab] Review of Systems - Physician Review All systems were reviewed & negative as marked: Yes - Review of Systems Constitutional: absent: Fevers, Night Sweats Respiratory: absent: SOB Cardiovascular: Palpitations, Other (near-syncope). absent: Chest Pain Gastrointestinal: Abdominal Pain (Episgastric burning). absent: Constipation, Diarrhea, Nausea, Vomiting, Appetite Changes Neurological: Other (numbness to bilateral toes) Physical Exam Vital Signs Reviewed: Yes Vital Signs Temp Pulse Pulse Resp BP BP Pulse Ox 11/25/16 13:08 110 H 153/86 H 11/25/16 13:00 99.3 F 110 H 17 153/86 H 100 Temperature: Afebrile Blood Pressure: Hypertensive Pulse: Tachycardic Respiratory Rate: Normal Appearance: Positive for: Well-Appearing, Non-Toxic, Comfortable Pain Distress: None Mental Status: Positive for: Alert and Oriented X 3 - Systems Exam Head: Present: Atraumatic, Normocephalic Pupils: Present: PERRL Extroacular Muscles: Present: EOMI Conjunctiva: Present: Normal Mouth: Present: Moist Mucous Membranes Neck: Present: Normal Range of Motion Respiratory/Chest: Present: Clear to Auscultation, Good Air Exchange. No: Respiratory Distress, Accessory Muscle Use Cardiovascular: Present: Regular Rate and Rhythm, Normal S1, S2. No: Murmurs Abdomen: Present: Normal Bowel Sounds. No: Tenderness, Distention, Peritoneal Signs Back: Present: Normal Inspection Upper Extremity: Present: Normal Inspection. No: Cyanosis, Edema Lower Extremity: Present: Normal Inspection. No: Edema Neurological: Present: GCS=15, CN II-XII Intact, Speech Normal Skin: Present: Warm, Dry, Normal Color. No: Rashes Psychiatric: Present: Alert, Oriented x 3, Normal Insight, Normal Concentration Medical Decision Making ED Course and Treatment: 11/25/16 13:07 Impression: A 76 year old female with near syncope. Patient notes palpitations, epigastric burning and numbness to bilateral big toes. Differential Diagnosis included but are not limited to: Near Syncope r/o cardiac vs dehydration Plan: -- Chest xray -- EKG -- Labs -- Urinalysis -- Ativan, Pepcid and IV fluids -- Reassess and disposition Prior Visits: Notes and results from previous visits were reviewed. Patient last seen in ED on 11/13/16 and hospitalized for near-syncope. Progress Notes: EKG shows sinus tachycardia at 118 BPM with PAC's. Interpreted by me. 11/25/16 14:14 Labs reviewed. Potassium low and replaced with PO Potassium. Patients feelings a little better after IVF and Ativan PO. HR repeat 90's. - Lab Interpretations Lab Results: 11/25/16 13:33 11/25/16 13:33 Lab Results 11/25/16 13:33: Sodium 137, Potassium 3.3 L, Chloride 98, Carbon Dioxide 27, Anion Gap 15, BUN 26 H, Creatinine 0.8, Est GFR ( Amer) > 60, Est GFR ( Non-Af Amer) > 60, Random Glucose 166 H, Calcium 10.0, Magnesium 1.8, Total Bilirubin 0.4, AST 23, ALT 19, Alkaline Phosphatase 86, Lactate Dehydrogenase 528, Total Creatine Kinase 164, Troponin I < 0.01, Total Protein 8.0, Albumin 4.6, Globulin 3.4, Albumin/Globulin Ratio 1.4, Lipase 114 11/25/16 13:33: PT 10.7, INR 0.99, APTT 26.4, D-Dimer, Quantitative 0.26 11/25/16 13:33: WBC 7.7 D, RBC 4.01, Hgb 11.8 L, Hct 34.2 L, MCV 85.3, MCH 29.4 , MCHC 34.5, RDW 12.7, Plt Count 212, MPV 11.5 H, Gran % 62.3, Lymph % (Auto) 21.3 L, [place] % (Auto) 6.8 H, Eos % (Auto) 9.1 H, Baso % (Auto) 0.5, Gran # 4.80 , Lymph # 1.6, [place] # 0.5, Eos # 0.7, Baso # 0.04 I have reviewed the lab results: Yes - RAD Interpretation Radiology Orders: 11/25/16 13:09 CHEST PORTABLE [RAD] Stat - Medication Orders Current Medication Orders: Sodium Chloride (Sodium Chloride 0.9%) 1,000 mls @ 150 mls/hr IV .[id number] ANGLE Last Admin: 11/25/16 13:25 Dose: 150 mls/hr Discontinued Medications Famotidine (Pepcid 20mg/50ml Premix) 20 mg in 50 mls @ 100 mls/hr IVPB STAT STA Stop: 11/25/16 13:39 Last Admin: 11/25/16 13:26 Dose: 100 mls/hr Lorazepam (Ativan) 1 mg PO ONCE ONE PRN Reason: Protocol Stop: 11/25/16 13:14 Last Admin: 11/25/16 13:25 Dose: 1 mg Potassium Chloride (K-Dur 20 Meq Er Tab) 40 meq PO STAT STA Stop: 11/25/16 13:56 - Scribe Statement The provider has reviewed the documentation as recorded by the Lisaibpatricia Waldron Provider Scribe Attestation: All medical record entries made by the Scribe were at my direction and personally dictated by me. I have reviewed the chart and agree that the record accurately reflects my personal performance of the history, physical exam, medical decision making, and the department course for this patient. I have also personally directed, reviewed, and agree with the discharge instructions and disposition. Disposition/Present on Arrival - Present on Arrival Any Indicators Present on Arrival: No History of DVT/PE: No History of Uncontrolled Diabetes: No Urinary Catheter: No History of Decub. Ulcer: No History Surgical Site Infection Following: None - Disposition Have Diagnosis and Disposition been Completed?: Yes Diagnosis: Near syncope Disposition: HOSPITALIZED Disposition Time: 14:15 Patient Plan: Observation Condition: FAIR
[2016-11-25] MEDS ORDERED: Sodium Chloride 0.9% 1,000 ML IV SCH (13:15)
--- NOTE | 2016-11-25 13:32 | RAD ---
HISTORY: epigastric abd pain COMPARISON: 11/13/2016 FINDINGS: LUNGS: No active pulmonary disease. PLEURA: No significant pleural effusion identified, no pneumothorax apparent. CARDIOVASCULAR: Normal. OSSEOUS STRUCTURES: No significant abnormalities. VISUALIZED UPPER ABDOMEN: Normal. OTHER FINDINGS: None. IMPRESSION: No active disease.
[2016-11-25 13:41] LABS: BASO # 0.04 K/mm3 (0.0-2.0); BASO % 0.5 % (0.0-3.0); EOS # 0.7 (0.0-0.7); EOS % 9.1 % (1.5-5.0); GRAN % 62.3 % (50.0-68.0); HEMOGLOBIN 11.8 gm/dL (12.0-16.0); LYMPH # 1.6 (1.2-3.4); LYMPH % 21.3 % (22.0-35.0); MEAN CELL VOLUME 85.3 fL (80.0-105.0); MEAN CORPUSCULAR HEMOGLOBIN 29.4 pg (25.0-35.0); MEAN CORPUSCULAR HGB CONC 34.5 g/dl (31.0-37.0); MEAN PLATELET VOLUME 11.5 fl (7.0-11.0); MONO # 0.5 (0.1-0.6); MONO % 6.8 % (1.0-6.0); PLATELET COUNT 212 10^3/uL (120.0-450.0); RBC 4.01 10^6/uL (3.5-6.1); RED CELL DISTRIBUTION WIDTH 12.7 % (11.5-14.5); WHITE BLOOD COUNT 7.7 10^3/ul (4.5-11.0)
[2016-11-25 13:48] LABS: ALB/GLOB RATIO 1.4 (1.1-1.8); ALBUMIN 4.6 g/dL (3.0-4.8); ALT/SGPT 19 U/L (7-56); AST/SGOT 23 U/L (15-39); BLOOD UREA NITROGEN 26 mg/dL (7-21); GFR AFRICAN-AMERICAN > 60; GFR NON-AFRICAN AMERICAN > 60; LIPASE 114 U/L (23-300); MAGNESIUM 1.8 mg/dL (1.7-2.2)
[2016-11-25] MEDS ORDERED: Potassium Chloride 20 mEq ER Tab PO STA (13:55)
[2016-11-25 13:59] LABS: TROPONIN I < 0.01 ng/mL
[2016-11-25 14:03] LABS: INR 0.99 (0.93-1.08); PARTIAL THROMBOPLASTIN TIME 26.4 Seconds (23.7-30.8); PROTHROMBIN TIME 10.7 Seconds (9.9-11.8)
[2016-11-25 14:05] LABS: D DIMER 0.26 mg/L FEU (0-0.50)
--- NOTE | 2016-11-25 15:53 | CP.PCM.HP ---
<HERNAN RODRIGUEZ - Last Filed: 11/25/16 15:38> History of Present Illness - History of Present Illness History of Present Illness: Ms. Manley is a 76yo female with PMHx HTN, HLD, migraines, and arthritis as well as a recent admission on 11/13/16 for the same symptoms and the results were negative for any cardiac or neurologic abnormalities was discharged on BP meds, and told to followup with PMD. Pt states that she felt her chest burning, then her heart racing and felt her hands and legs become tingly. States that the episode lasted 15minutes this morning, and that it was relieved when she sat down. Pt is a poor historian; translation was provided by an EMT in the ER. Patient states that she has been having similar episodes since a medication was changed by Dr. Acosta, and that she would like us to communicate with Dr. Acosta that she would like this medication changed. Pt also states that she has felt burning and tingling sensation in her anterior shins b/ l as well as between the 1st and 2nd toes since April 2016 when she returned from travel [place] the country. Pt denies cp, abdominal pain, n/v/d, headaches , or loss of consciousness. PMH: HTN, HLD, migraines, arthritis, pre-diabetes in the past PSH: none All: PCN SHx: lives at home with a grandson; denies tobacco, ETOH or illicit drug use Present on Admission - Present on Admission Any Indicators Present on Admission: No Review of Systems - Review of Systems Systems not reviewed;Unavailable: Language Barrier All systems: reviewed and no additional remarkable complaints except - Constitutional Constitutional: Fatigue, Lethargy, Malaise. absent: Anorexia, Chills, Fever, Frequent Falls, Headache, Weight Gain, Weight Loss - EENT Eyes: As Per HPI Ears: As Per HPI Nose/Mouth/Throat: As Per HPI - Cardiovascular Cardiovascular: Irregular Heart Rhythm, Lightheadedness, Palpitations, Rapid Heart Rate. absent: Chest Pain, Chest Pain at Rest, Chest Pain with Activity, Claudication, Diaphoresis, Dyspnea, Dyspnea on Exertion, Edema, Pain Radiating to Arm/Neck/Jaw, Leg Edema, Leg Ulcers, Orthopnea, Paroxysmal Nocturnal Dyspnea , Pedal Edema, Radiating Pain, Slow Heart Rate, Syncope Additional comments: pt states that the chest burning and palpitations occur after she takes her medications, and not affected by food - Respiratory Respiratory: Cough. absent: Dyspnea, Hemoptysis, Wheezing, Stridor, Pain on Inspiration, Chest Congestion, Excessive Mucous Production, Pain with Coughing - Gastrointestinal Gastrointestinal: absent: Abdominal Pain, Constipation, Diarrhea, Fecal Incontinence, Loose Stools, Nausea, Vomiting - Genitourinary Genitourinary: absent: Change in Urinary Stream, Difficulty Urinating, Dysuria, Hematuria - Musculoskeletal Musculoskeletal: Tingling (anterior shins b/l). absent: Arthralgias, Atrophy, Back Pain, Deformity, Joint Swelling, Limited Range of Motion, Muscle Cramps, Muscle Weakness, Neck Pain, Numbness, Radiating Pain into Limb - Integumentary Integumentary: absent: Change in Hair (denies hair loss), Change in Nails, Change in Pigmentation, Erythema, Hirsutism - Neurological Neurological: Burning Sensations (states burning in anterior shins and chest), Tingling. absent: Abnormal Gait, Abnormal Hearing, Abnormal Movements, Abnormal Speech, Confusion, Focal Weakness, Frequent Falls, Headaches, Lack of Coordination, Sensory Deficit, Syncope, Weakness - Psychiatric Psychiatric: absent: Anxiety, Depression - Endocrine Endocrine: Fatigue, Palpitations Past Patient History - Infectious Disease Hx of Infectious Diseases: None - Tetanus Immunizations Tetanus Immunization: Unknown - Past Medical History & Family History Past Medical History?: Yes Past Family History: Reviewed and not pertinent - Past Social History Smoking Status: Never Smoked Alcohol: None Drugs: Denies Home Situation {Lives}: With Family - CARDIAC Hx Cardiac Disorders: Yes Hx Hypercholesterolemia: Yes Hx Hypertension: Yes - PULMONARY Hx Respiratory Disorders: No - NEUROLOGICAL Hx Neurological Disorder: Yes Hx Dizziness: Yes - HEENT Hx HEENT Problems: Yes Hx Cataracts: Yes (b/l cataract sx) - RENAL Hx Chronic Kidney Disease: No - ENDOCRINE/METABOLIC Hx Endocrine Disorders: No - HEMATOLOGICAL/ONCOLOGICAL Hx Blood Disorders: No - INTEGUMENTARY Hx Dermatological Problems: No Hx Basil Cell: No - MUSCULOSKELETAL/RHEUMATOLOGICAL Hx Musculoskeletal Disorders: No Hx Falls: No Hx Osteoarthritis: Yes - GASTROINTESTINAL Hx Gastrointestinal Disorders: No - GENITOURINARY/GYNECOLOGICAL Hx Genitourinary Disorders: No - PSYCHIATRIC Hx Psychophysiologic Disorder: No Hx Anxiety: No Hx Substance Use: No - SURGICAL HISTORY Other/Comment: left breat lump removed - ANESTHESIA Hx Anesthesia: Yes Hx Anesthesia Reactions: No Hx Malignant Hyperthermia: No Meds Home Medications: Home Medication List Medication Instructions Recorded Confirmed Type Aspirin [Aspirin Chewable] 81 mg PO STAT #30 11/26/16 Rx Lisinopril [Zestril] 20 mg PO DAILY #30 tab 11/26/16 Rx Spironolactone [Aldactone] 25 mg PO DAILY #30 tab 11/26/16 Rx hydroCHLOROthiazide [Microzide] 12.5 mg PO DAILY #30 cap 11/26/16 Rx Allergies/Adverse Reactions: Allergies Allergy/AdvReac Type Severity Reaction Status Date / Time Penicillins Allergy RASH Verified 11/25/16 12:55 pcn Allergy RASH Uncoded 11/25/16 12:55 Physical Exam - Constitutional Appears: Well, Non-toxic, No Acute Distress - Head Exam Head Exam: ATRAUMATIC, NORMAL INSPECTION, NORMOCEPHALIC - Eye Exam Eye Exam: EOMI, Normal appearance, PERRL - ENT Exam ENT Exam: Mucous Membranes Moist, Normal Exam, Normal Oropharynx, TM's Normal Bilaterally - Neck Exam Neck exam: Positive for: Normal Inspection. Negative for: Lymphadenopathy, Tenderness, Thyromegaly - Respiratory Exam Respiratory Exam: Clear to Auscultation Bilateral, NORMAL BREATHING PATTERN. absent: Accessory Muscle Use, Chest Wall Tenderness, Rales, Rhonchi, Wheezes, Respiratory Distress, Stridor - Cardiovascular Exam Cardiovascular Exam: Tachycardia, REGULAR RHYTHM, +S1, +S2 - GI/Abdominal Exam GI & Abdominal Exam: Normal Bowel Sounds, Soft. absent: Distended, Organomegaly , Rigid, Tenderness - Extremities Exam Extremities exam: Positive for: full ROM, normal inspection. Negative for: joint swelling, pedal edema, tenderness - Neurological Exam Neurological exam: Alert, Normal Gait, Oriented x3 - Psychiatric Exam Psychiatric exam: Normal Affect, Normal Mood - Skin Skin Exam: Normal Color, Warm Results - Vital Signs Recent Vital Signs: Last Vital Signs Temp 99.3 F 11/25/16 13:00 Pulse 98 H 11/25/16 14:44 Resp 18 11/25/16 14:44 BP 149/80 11/25/16 14:44 Pulse Ox 99 11/25/16 14:44 - Labs Result Diagrams: 11/25/16 13:33 11/25/16 13:33 Assessment & Plan - Assessment and Plan (Free Text) Assessment: Ms. Sindhu Maradiaga is a 76yo (French-speaking only) F PMHx HTN, HLD, migraine and arthritis presented to the [facility] ED with complaints of chest burning and leg burning that caused her to have to sit down, and lasted 15mins. EKG done in ED showed NSR with atrial complexes. Troponins neg x1. 1. Chest pain and dizziness 2. HTN 3. Legs burning 4. HLD Plan: 1. Chest pain and dizziness - Transfer to [facility] for observation - Carotid dopplers (11/14): B/L 20-39% prox ICA stenoses - CT Head (11/13): no acute intracranial hemorrhage; scattered foci present indicating small vessel ischemic dz; slight atrophy - ECHO (11/15): EF 71%; mild-mod AR and MR - Cardio consult - Check thyroid panel 2. HTN - 153/86 - continue home meds 3. Legs burning - check A1C and f/u thyroid panel 4. HLD - check lipid panel PPX: PTX/SCDs Patient was seen, evaluated and discussed with attending, Dr. Danilo Rodriguez - Date & Time Date: 11/25/16 Time: 15:30 <Tali Carrasco - Last Filed: 11/27/16 12:00> Results - Vital Signs Recent Vital Signs: Last Vital Signs Temp 98.0 F 11/26/16 06:00 Pulse 78 11/26/16 10:00 Resp 20 11/26/16 06:00 BP 148/81 11/26/16 06:00 Pulse Ox 98 11/26/16 06:00 - Labs Result Diagrams: 11/26/16 06:00 11/26/16 06:00 Attending/Attestation - Attestation I have personally seen and examined this patient.: Yes I have fully participated in the care of the patient.: Yes I have reviewed all pertinent clinical information: Yes Notes (Text): I have seen and examined patient at bedside. Agree with the above note with the following additions/ exception: This is 76 year old female with history of HTN, dyslipidemia who came for evaluation of burning type of chest pain, palpitations and leg weakness. She did not lose consciousness. Patient will be observed in telemtery. ACS eusebio be ruled out. Will check TFT's. She has hypokalemia which was replaced. Will consult cardiology. Last time, CT head did not reveal any acute findings and Echo was unremarkable last time. Follow up on A1C. Upon discharge patient will follow up with Dr Acosta.
[2016-11-25 16:26] VITALS: RESP 20
[2016-11-25 17:59] LABS: HDL CHOLESTEROL 44 mg/dL (29-60)
[2016-11-25 18:10] LABS: LDL CHOLESTEROL 91 mg/dL (0-129)
[2016-11-25 18:16] LABS: FREE T4 1.31 ng/dL (0.78-2.19)
[2016-11-25] MEDS ORDERED: Pneumococcal 23-Valent Vaccine IM ONE (18:16)
[2016-11-25 18:36] LABS: URINE BILIRUBIN NEGATIVE (NEGATIVE); URINE BLOOD NEGATIVE (NEGATIVE); URINE GLUCOSE (UA) NEGATIVE (NEGATIVE); URINE LEUKOCYTE ESTERASE NEGATIVE Leu/uL (NEGATIVE); URINE NITRATE NEGATIVE (NEGATIVE); URINE PROTEIN NEGATIVE mg/dL (<30 mg/dL); URINE UROBILINOGEN 0.2 E.U./dL (<1 E.U./dL)
[2016-11-25 18:37] LABS: URINE APPEARANCE CLEAR (CLEAR); URINE COLOR LIGHT YELLOW (YELLOW)
[2016-11-26] MEDS ORDERED: Pantoprazole 20 mg EC Tab PO SCH (06:00)
[2016-11-26 06:29] LABS: HEMOGLOBIN 11.7 gm/dL (12.0-16.0); MEAN CELL VOLUME 85.6 fL (80.0-105.0); MEAN CORPUSCULAR HGB CONC 33.9 g/dl (31.0-37.0); MEAN PLATELET VOLUME 10.7 fl (7.0-11.0); PLATELET COUNT 209 10^3/uL (120.0-450.0); RBC 4.03 10^6/uL (3.5-6.1); RED CELL DISTRIBUTION WIDTH 13.1 % (11.5-14.5); WHITE BLOOD COUNT 6.9 10^3/ul (4.5-11.0)
[2016-11-26 07:21] LABS: ALB/GLOB RATIO 1.4 (1.1-1.8); ALBUMIN 4.2 g/dL (3.0-4.8); ALT/SGPT 21 U/L (7-56); AST/SGOT 24 U/L (15-39); BLOOD UREA NITROGEN 20 mg/dL (7-21); GFR AFRICAN-AMERICAN > 60; GFR NON-AFRICAN AMERICAN > 60
[2016-11-26 09:03] VITALS: BP 148/81; TEMP 98; O2SAT 98
[2016-11-26 10:07] LABS: EOSINOPHIL 16 % (0.0-3.0); LYMPHOCYTE 21 % (22.0-35.0); MONOCYTE 7 % (1.0-6.0); NEUTROPHIL 56 % (50.0-70.0); PLATELET ESTIMATE NORMAL (NORMAL)
[2016-11-26 10:32] VITALS: PULSE 78
--- NOTE | 2016-11-26 16:01 | CON ---
DATE: 11/26/2016 REASON FOR CONSULTATION: Cardiac evaluation. The patient admitted with near syncope not feeling good. BRIEF CLINICAL HISTORY: This is a 76-year-old Upper Sorbian speaking female. Family is at the bedside. Daughter and the son-in-law at the bedside with past medical history significant for hypertension more than 20 years, hyperlipidemia, beginning arthritis, who recently admitted on 11/13/2016 with the same symptoms and was discharged after the workup. The patient says that she feels very weak, sometimes dizzy, found to have low potassium. The patient denies chest pain. Denies any shortness of breath. Denies any palpitation. The patient lives in third floor and take stairs and very energetic, but does not feel any chest pain, but sometimes she feels shortness of breath. Also feels sometimes her leg gets weaker. PAST MEDICAL HISTORY: Significant for hypertension, arthritis beginning. SOCIAL HISTORY: Denies any history of alcohol abuse. CURRENT MEDICATIONS: The patient at home was taking hydrochlorothiazide, lisinopril, and aspirin. ALLERGIES: NO KNOWN DRUG ALLERGIES. REVIEW OF SYSTEMS: As per HPI. PHYSICAL EXAMINATION: VITAL SIGNS: Afebrile, heart rate 73, and blood pressure 142/92. HEENT: PERRLA. Extraocular muscles are intact. NECK: Supple. No carotid bruits or thyromegaly. CHEST: Clear to auscultation. HEART: S1 and S2, regular. ABDOMEN: Soft. EXTREMITIES: Clubbing or cyanosis negative. LABORATORY DATA: EKG showed sinus tachycardia with APCs, no acute ST-T wave changes noted. Previous cardiac workup as follows: The patient had echocardiography done on 11/15/2016, that showed normal LV function, [id number] aortic regurgitation, [id number] mitral regurgitation, [id number] tricuspid regurgitation, RV systolic pressure of 40, calculated ejection fraction of 71%. The patient has also had bilateral carotid Duplex scan done on 11/14/2016. Bilateral *------* proximal ICA stenosis. IMPRESSION: This is a 76-year-old female with a past medical history significant for hypertension more than 20 years ago, hypertension, hyperlipidemia, *------* admitted with complaint of dizziness twice on 11/15/2016, not feeling good and feeling weak. Denies any chest pain, shortness of breath, or any palpitation. Previous cardiac workup including echocardiogram and *------* was negative. At this time was found to be hypokalemic as well as last time also potassium was found to be hypokalemic, possibly these symptoms attributive secondary to hypokalemia, but given the longstanding history of hypertension, for risk stratification, suggest stress test also discussed with daughter and also since the patient is on hydrochlorothiazide combination, we will put 25 mg of spironolactone as well in the current regimen. I discussed with the family and we will discuss with you. Thank you Dr. Carrasco for opportunity in taking care of Then Kika Manley. Arrangements are made for stress test as outpatient. We will follow with you. Kathrin Camejo MD cc: Dr. Carrasco
--- NOTE | 2016-11-26 16:35 | CARD ---
APPROVED REPORT EKG Measurement Heart [id number] <Conclusion> Sinus tachycardia with premature atrial complexes Abnormal ECG
--- NOTE | 2016-11-27 03:14 | CP.PCM.DIS ---
<HERNAN RODRIGUEZ - Last Filed: 11/27/16 03:07> Provider - Provider Date of Admission: 11/25/16 14:12 Attending physician: Tali Carrasco MD Primary care physician: Jeffrey Acosta MD Time Spent in preparation of Discharge (in minutes): 45 Hospital Course - Lab Results Lab Results: Most Recent Lab Values WBC 6.9 10^3/ul (4.5-11.0) 11/26/16 06:00 RBC 4.03 10^6/uL (3.5-6.1) 11/26/16 06:00 Hgb 11.7 gm/dL (12.0-16.0) L 11/26/16 06:00 Hct 34.5 % (36.0-48.0) L 11/26/16 06:00 MCV 85.6 fL (80.0-105.0) 11/26/16 06:00 MCH 29.0 pg (25.0-35.0) 11/26/16 06:00 MCHC 33.9 g/dl (31.0-37.0) 11/26/16 06:00 RDW 13.1 % (11.5-14.5) 11/26/16 06:00 Plt Count 209 10^3/uL (120.0-450.0) 11/26/16 06:00 MPV 10.7 fl (7.0-11.0) 11/26/16 06:00 Gran % 62.3 % (50.0-68.0) 11/25/16 13:33 Lymph % (Auto) 21.3 % (22.0-35.0) L 11/25/16 13:33 Gillespie % (Auto) 6.8 % (1.0-6.0) H 11/25/16 13:33 Eos % (Auto) 9.1 % (1.5-5.0) H 11/25/16 13:33 Baso % (Auto) 0.5 % (0.0-3.0) 11/25/16 13:33 Gran # 4.80 (1.4-6.5) 11/25/16 13:33 Lymph # 1.6 (1.2-3.4) 11/25/16 13:33 Gillespie # 0.5 (0.1-0.6) 11/25/16 13:33 Eos # 0.7 (0.0-0.7) 11/25/16 13:33 Baso # 0.04 K/mm3 (0.0-2.0) 11/25/16 13:33 Neutrophils % (Manual) 56 % (50.0-70.0) 11/26/16 06:00 Lymphocytes % (Manual) 21 % (22.0-35.0) L 11/26/16 06:00 Monocytes % (Manual) 7 % (1.0-6.0) H 11/26/16 06:00 Eosinophils % (Manual) 16 % (0.0-3.0) H 11/26/16 06:00 Platelet Evaluation Normal (NORMAL) 11/26/16 06:00 PT 10.7 Seconds (9.9-11.8) 11/25/16 13:33 INR 0.99 (0.93-1.08) 11/25/16 13:33 APTT 26.4 Seconds (23.7-30.8) 11/25/16 13:33 D-Dimer, Quantitative 0.26 mg/L FEU (0-0.50) 11/25/16 13:33 Sodium 139 mmol/L (132-148) 11/26/16 06:00 Potassium 4.0 mmol/L (3.6-5.0) 11/26/16 06:00 Chloride 101 mmol/L (98-107) 11/26/16 06:00 Carbon Dioxide 29 mmol/L (21-33) 11/26/16 06:00 Anion Gap 13 (10-20) 11/26/16 06:00 BUN 20 mg/dL (7-21) 11/26/16 06:00 Creatinine 0.8 mg/dL (0.5-1.4) 11/26/16 06:00 Est GFR ( Amer) > 60 11/26/16 06:00 Est GFR (Non-Af Amer) > 60 11/26/16 06:00 Random Glucose 87 mg/dL (70-110) 11/26/16 06:00 Hemoglobin A1c 6.2 % (4.2-6.5) 11/25/16 13:33 Calcium 9.0 mg/dL (8.4-10.5) 11/26/16 06:00 Magnesium 1.8 mg/dL (1.7-2.2) 11/25/16 13:33 Total Bilirubin 0.6 mg/dL (0.2-1.3) 11/26/16 06:00 AST 24 U/L (15-39) 11/26/16 06:00 ALT 21 U/L (7-56) 11/26/16 06:00 Alkaline Phosphatase 74 U/L (38-133) 11/26/16 06:00 Lactate Dehydrogenase 528 U/L (333-699) 11/25/16 13:33 Total Creatine Kinase 164 U/L (35-230) 11/25/16 13:33 Troponin I < 0.01 ng/mL 11/26/16 06:00 Total Protein 7.3 g/dL (5.8-8.3) 11/26/16 06:00 Albumin 4.2 g/dL (3.0-4.8) 11/26/16 06:00 Globulin 3.1 gm/dL 11/26/16 06:00 Albumin/Globulin Ratio 1.4 (1.1-1.8) 11/26/16 06:00 Triglycerides 305 mg/dL (35-160) H 11/25/16 13:33 Cholesterol 180 mg/dL (130-200) 11/25/16 13:33 LDL Cholesterol Direct 91 mg/dL (0-129) 11/25/16 13:33 HDL Cholesterol 44 mg/dL (29-60) 11/25/16 13:33 Lipase 114 U/L (23-300) 11/25/16 13:33 Free T4 1.31 ng/dL (0.78-2.19) 11/25/16 13:33 Total T3 1.04 ng/mL (0.97-1.69) 11/26/16 06:30 TSH 3rd Generation 4.79 mIU/mL (0.46-4.68) H 11/25/16 13:33 Urine Color Light yellow (YELLOW) 11/25/16 18:30 Urine Appearance Clear (CLEAR) 11/25/16 18:30 Urine pH 7.0 (4.7-8.0) 11/25/16 18:30 Ur Specific [place] 1.010 (1.005-1.035) 11/25/16 18:30 Urine Protein Negative mg/dL (<30 mg/dL) 11/25/16 18:30 Urine Glucose (UA) Negative mg/dL (NEGATIVE) 11/25/16 18:30 Urine Ketones Negative mg/dL (NEGATIVE) 11/25/16 18:30 Urine Blood Negative (NEGATIVE) 11/25/16 18:30 Urine Nitrate Negative (NEGATIVE) 11/25/16 18:30 Urine Bilirubin Negative (NEGATIVE) 11/25/16 18:30 Urine Urobilinogen 0.2 E.U./dL (<1 E.U./dL) 11/25/16 18:30 Ur Leukocyte Esterase Negative Marisa/uL (NEGATIVE) 11/25/16 18:30 - Hospital Course Hospital Course: Ms. Manley is a 76yo female with PMHx HTN, HLD, migraines, and arthritis as well as a recent admission on 11/13/16 for the same symptoms and the results were negative for any cardiac or neurologic abnormalities was discharged on BP meds, and told to followup with PMD. Pt states that she felt her chest burning, then her heart racing and felt her hands and legs become tingly. States that the episode lasted 15minutes on morning of admission, and that it was relieved when she sat down. Pt is a poor historian; translation was provided by an EMT in the ER. Patient states that she has been having similar episodes since a medication was changed by Dr. Acosta (PMD), and that she would like us to communicate with Dr. Acosta that she would like this medication changed. Pt also states that she has felt burning and tingling sensation in her anterior shins b/l as well as between the 1st and 2nd toes since April 2016 when she returned from travel [place] the country. Pt denies cp, abdominal pain , n/v/d, headaches, or loss of consciousness. Carotid dopplers (11/14): B/L 20-39 % prox ICA stenoses. CT Head (11/13): no acute intracranial hemorrhage; scattered foci present indicating small vessel ischemic dz; slight atrophy. ECHO (11/15): EF 71%; mild-mod AR and MR. Patient was transferred to [facility] for observation and management. On the floors, cardio was consulted and further labs were ordered. The pt states that this all started since Dr. Acosta started her on a different B_ medication. The pt's potassium was repleted and thyroid panel showed sublinical hypothyroidism; labs were otherwise WNL. Cardio recommends adding aldactone and a f/u stress test. Patient was educated and her medications adjusted, and told to f/u with Dr. Camejo outpatient for stress test and for Dr. Acosta for adjustment of medications. The patient has been taken off the combination Lisinopril/HCTZ and put on separate pills for the same two drugs, per cardio recs. This morning, the patient denied any chest burning with the medications she's on at the hospital, and her tingling sensation in her legs has resolved. Pt states that she is able to walk around and use the bathroom without feeling dizzy or unbalanced. Denies sob, fevers, palpitations. - Date & Time of H&P Date of H&P: 11/25/16 Time of H&P: 15:40 Discharge Exam - Head Exam Head Exam: ATRAUMATIC, NORMAL INSPECTION, NORMOCEPHALIC - Eye Exam Eye Exam: EOMI, Normal appearance, PERRL Pupil Exam: NORMAL ACCOMODATION - ENT Exam ENT Exam: Mucous Membranes Moist, Normal Exam - Neck Exam Neck exam: Normal Inspection Additional comments: no thyromegaly or LAD noted - Respiratory Exam Respiratory Exam: Clear to PA & Lateral, NORMAL BREATHING PATTERN, UNREMARKABLE. absent: Accessory Muscle Use, Chest Wall Tenderness, Rales, Rhonchi, Wheezes, Respiratory Distress, Stridor - Cardiovascular Exam Cardiovascular Exam: REGULAR RHYTHM, RRR, +S1, +S2. absent: Diastolic murmur, Gallop, Irregular Rhythm, JVD, Rubs, Systolic Murmur - GI/Abdominal Exam GI & Abdominal Exam: Normal Bowel Sounds, Soft, Unremarkable. absent: Distended , Firm, Organomegaly, Tenderness - Extremities Exam Additional comments: pedal pulses present, no pedal edema and no tingling or burning in extremities - Neurological Exam Neurological exam: Alert, Normal Gait, Oriented x3 - Psychiatric Exam Psychiatric exam: Normal Affect, Normal Mood - Skin Skin Exam: Normal Color, Warm Discharge Plan - Discharge Medications Prescriptions: hydroCHLOROthiazide [Microzide] 12.5 mg PO DAILY #30 cap Lisinopril [Zestril] 20 mg PO DAILY #30 tab Spironolactone [Aldactone] 25 mg PO DAILY #30 tab - Follow Up Plan Condition: FAIR Disposition: HOME/ ROUTINE Instructions: Syncope (DC) Additional Instructions: Ms. Manley Then, Your medications have been adjusted and you will be following the high blood pressure medications that you were on during your hospital stay. Our recommendations: 1. Please f/u with Dr. Acosta within 2 weeks for management and adjustment of your medications. Your requests to change the medications have been communicated to Dr. Acosta. 2. Please schedule a stress test in two weeks with Dr. Acosta or through a senior patrol agent that Dr. Acosta recommends. 3. Meds: Hydrochlorothiazide Take 1 cap DAILY Lisinopril Take 1 cap DAILY Aldactone Take 1 cap DAILY If you experience any headaches, chest pain, palpitations or any discomfort, please go to the ER. Thank you, Hernan Rodriguez PGY1 Dr. Carrasco, Attending Physician Referrals: Jeffrey Acosta MD [Primary Care Provider] - <Tali Carrasco - Last Filed: 11/27/16 16:13> Provider - Provider Date of Admission: 11/25/16 14:12 Attending physician: Tali Carrasco MD Primary care physician: Jeffrey Acosta MD Hospital Course - Lab Results Lab Results: Most Recent Lab Values WBC 6.9 10^3/ul (4.5-11.0) 11/26/16 06:00 RBC 4.03 10^6/uL (3.5-6.1) 11/26/16 06:00 Hgb 11.7 gm/dL (12.0-16.0) L 11/26/16 06:00 Hct 34.5 % (36.0-48.0) L 11/26/16 06:00 MCV 85.6 fL (80.0-105.0) 11/26/16 06:00 MCH 29.0 pg (25.0-35.0) 11/26/16 06:00 MCHC 33.9 g/dl (31.0-37.0) 11/26/16 06:00 RDW 13.1 % (11.5-14.5) 11/26/16 06:00 Plt Count 209 10^3/uL (120.0-450.0) 11/26/16 06:00 MPV 10.7 fl (7.0-11.0) 11/26/16 06:00 Gran % 62.3 % (50.0-68.0) 11/25/16 13:33 Lymph % (Auto) 21.3 % (22.0-35.0) L 11/25/16 13:33 Gillespie % (Auto) 6.8 % (1.0-6.0) H 11/25/16 13:33 Eos % (Auto) 9.1 % (1.5-5.0) H 11/25/16 13:33 Baso % (Auto) 0.5 % (0.0-3.0) 11/25/16 13:33 Gran # 4.80 (1.4-6.5) 11/25/16 13:33 Lymph # 1.6 (1.2-3.4) 11/25/16 13:33 Gillespie # 0.5 (0.1-0.6) 11/25/16 13:33 Eos # 0.7 (0.0-0.7) 11/25/16 13: Baso # 0.04 K/mm3 (0.0-2.0) 11/25/16 13:33 Neutrophils % (Manual) 56 % (50.0-70.0) 11/26/16 06:00 Lymphocytes % (Manual) 21 % (22.0-35.0) L 11/26/16 06:00 Monocytes % (Manual) 7 % (1.0-6.0) H 11/26/16 06:00 Eosinophils % (Manual) 16 % (0.0-3.0) H 11/26/16 06:00 Platelet Evaluation Normal (NORMAL) 11/26/16 06:00 PT 10.7 Seconds (9.9-11.8) 11/25/16 13:33 INR 0.99 (0.93-1.08) 11/25/16 13:33 APTT 26.4 Seconds (23.7-30.8) 11/25/16 13:33 D-Dimer, Quantitative 0.26 mg/L FEU (0-0.50) 11/25/16 13:33 Sodium 139 mmol/L (132-148) 11/26/16 06:00 Potassium 4.0 mmol/L (3.6-5.0) 11/26/16 06:00 Chloride 101 mmol/L (98-107) 11/26/16 06:00 Carbon Dioxide 29 mmol/L (21-33) 11/26/16 06:00 Anion Gap 13 (10-20) 11/26/16 06:00 BUN 20 mg/dL (7-21) 11/26/16 06:00 Creatinine 0.8 mg/dL (0.5-1.4) 11/26/16 06:00 Est GFR ( Amer) > 60 11/26/16 06:00 Est GFR (Non-Af Amer) > 60 11/26/16 06:00 Random Glucose 87 mg/dL (70-110) 11/26/16 06:00 Hemoglobin A1c 6.2 % (4.2-6.5) 11/25/16 13:33 Calcium 9.0 mg/dL (8.4-10.5) 11/26/16 06:00 Magnesium 1.8 mg/dL (1.7-2.2) 11/25/16 13:33 Total Bilirubin 0.6 mg/dL (0.2-1.3) 11/26/16 06:00 AST 24 U/L (15-39) 11/26/16 06:00 ALT 21 U/L (7-56) 11/26/16 06:00 Alkaline Phosphatase 74 U/L (38-133) 11/26/16 06:00 Lactate Dehydrogenase 528 U/L (333-699) 11/25/16 13:33 Total Creatine Kinase 164 U/L (35-230) 11/25/16 13:33 Troponin I < 0.01 ng/mL 11/26/16 06:00 Total Protein 7.3 g/dL (5.8-8.3) 11/26/16 06:00 Albumin 4.2 g/dL (3.0-4.8) 11/26/16 06:00 Globulin 3.1 gm/dL 11/26/16 06:00 Albumin/Globulin Ratio 1.4 (1.1-1.8) 11/26/16 06:00 Triglycerides 305 mg/dL (35-160) H 11/25/16 13:33 Cholesterol 180 mg/dL (130-200) 11/25/16 13:33 LDL Cholesterol Direct 91 mg/dL (0-129) 11/25/16 13:33 HDL Cholesterol 44 mg/dL (29-60) 11/25/16 13:33 Lipase 114 U/L (23-300) 11/25/16 13:33 Free T4 1.31 ng/dL (0.78-2.19) 11/25/16 13:33 Total T3 1.04 ng/mL (0.97-1.69) 11/26/16 06:30 TSH 3rd Generation 4.79 mIU/mL (0.46-4.68) H 11/25/16 13:33 Urine Color Light yellow (YELLOW) 11/25/16 18:30 Urine Appearance Clear (CLEAR) 11/25/16 18:30 Urine pH 7.0 (4.7-8.0) 11/25/16 18:30 Ur Specific [place] 1.010 (1.005-1.035) 11/25/16 18:30 Urine Protein Negative mg/dL (<30 mg/dL) 11/25/16 18:30 Urine Glucose (UA) Negative mg/dL (NEGATIVE) 11/25/16 18:30 Urine Ketones Negative mg/dL (NEGATIVE) 11/25/16 18:30 Urine Blood Negative (NEGATIVE) 11/25/16 18:30 Urine Nitrate Negative (NEGATIVE) 11/25/16 18:30 Urine Bilirubin Negative (NEGATIVE) 11/25/16 18:30 Urine Urobilinogen 0.2 E.U./dL (<1 E.U./dL) 11/25/16 18:30 Ur Leukocyte Esterase Negative Marisa/uL (NEGATIVE) 11/25/16 18:30 Attending/Attestation - Attestation I have personally seen and examined this patient.: Yes I have fully participated in the care of the patient.: Yes I have reviewed all pertinent clinical information, including history, physical exam and plan: Yes Notes (Text): I have seen and examined patient at bedside. Agree with the above note with the following additions/ exception: This is 76 year old female with history of HTN, dyslipidemia who came for evaluation of burning type of chest pain, palpitations and leg weakness. She did not lose consciousness. ACS ruled out. Patient has subclinical hypothyroidism. She has hypokalemia which was replaced. Cardiology consult appreciated. Patient is scheduled for stress test as an outpatient with Dr Camejo. Also HCTZ was decreased to 12.5.Continue lisinopril and added aldactone. Discussed in detail with Dr Acosta. Patient will follow up with Dr Acosta within 3-[address] Tali Carrasco
== END 2016-11-26 15:05 | disposition home or self-care (01) ==
LOC: ED 12:48 → ERH 14:12 → 3RNO 16:46
PROVIDERS: ADMIT Hospitalist; ATTEND Hospitalist
DX: R55 Syncope and collapse (principal); E03.9 Hypothyroidism, unspecified; E78.00 Pure hypercholesterolemia, unspecified; E78.5 Hyperlipidemia, unspecified; E87.6 Hypokalemia; I10 Essential (primary) hypertension; Z79.899 Other long term (current) drug therapy; R42 Dizziness and giddiness; Z98.42 Cataract extraction status, left eye; Z98.41 Cataract extraction status, right eye; Z88.0 Allergy status to penicillin; R20.0 Anesthesia of skin; R40.2412 Glasgow coma scale score 13-15, at arrival to emergency department; R00.0 Tachycardia, unspecified; M19.90 Unspecified osteoarthritis, unspecified site; G43.909 Migraine, unspecified, not intractable, without status migrainosus; R07.9 Chest pain, unspecified; I65.23 Occlusion and stenosis of bilateral carotid arteries
CPT/HCPCS: 36415; 71010; 80053; 80061; 81003; 82550; 83036; 83615; 83690; 83735; 84439; 84443; 84480; 84484; 85025; 85378; 85610; 85730; 93005; 96365; 99285; G0378; J7040

== ENCOUNTER 2016-11-30 22:06 | Observation (INO) | payer MEDICARE, OTHER ==
[2016-11-30 22:06] VITALS: BMI 22.6
--- NOTE | 2016-11-30 22:22 | ED PDOC ---
Arrival/HPI - General Chief Complaint: Palpitations Time Seen by Provider: 11/30/16 22:08 Historian: Patient, Family - History of Present Illness Narrative History of Present Illness (Text): 11/30/16 22:21 Kika Maradiaga is a 76 year old female, whose past medical history includes hypertension, hyperlipidemia, and migraines, who presents to the Emergency department accompanied by family complaining of chest pain. 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 Daughter notes patient was recently seen in the Emergency department for similar symptoms and admitted to the hospital. Daughter also reports patient has been experiencing loss of appetite. Patient denies any fever, chills, nausea, vomiting, diarrhea, urinary symptoms, back pain, neck pain, headache, dizziness, or any other complaints. Symptom Onset: Gradual Symptom Course: Unchanged Activities at Onset: Rest, Light Context: Home Past Medical History - Provider Review Nursing Documentation Reviewed: Yes - Infectious Disease Hx of Infectious Diseases: None - Tetanus Immunization Tetanus Immunization: Unknown - Reproductive Menopause: Yes - Cardiac Hx Cardiac Disorders: Yes Hx Hypertension: Yes - Pulmonary Hx Respiratory Disorders: No - Neurological Hx Neurological Disorder: Yes (near syncope 1 episode about 2 wks ago) Hx Dizziness: Yes Hx Migraine: Yes - HEENT Hx HEENT Disorder: Yes Hx Cataracts: Yes (b/l cataract sx) - Renal Hx Renal Disorder: No - Endocrine/Metabolic Hx Endocrine Disorders: No - Hematological/Oncological Hx Blood Disorders: No - Integumentary Hx Dermatological Disorder: No Hx Basal Cell Carcinoma: No - Musculoskeletal/Rheumatological Hx Musculoskeletal Disorders: No Hx Falls: No Hx Osteoarthritis: Yes - Gastrointestinal Hx Gastrointestinal Disorders: No - Genitourinary/Gynecological Hx Genitourinary Disorders: No - Psychiatric Hx Psychophysiologic Disorder: No Hx Anxiety: Yes Hx Substance Use: No - Surgical History Other/Comment: left breat lump removed benign - Anesthesia Hx Anesthesia: Yes Hx Anesthesia Reactions: No Hx Malignant Hyperthermia: No Family/Social History - Physician Review Nursing Documentation Reviewed: Yes Family/Social History: Unknown Family HX Smoking Status: Never Smoked Hx Alcohol Use: No Hx Substance Use: No Allergies/Home Meds Allergies/Adverse Reactions: Allergies Penicillins Allergy (Verified 11/25/16 12:55) RASH pcn Allergy (Uncoded 11/25/16 12:55) RASH Review of Systems - Physician Review All systems were reviewed & negative as marked: Yes - Review of Systems Constitutional: Normal. absent: Fevers Eyes: Normal ENT: Normal Respiratory: Normal. absent: SOB, Cough Cardiovascular: Chest Pain Gastrointestinal: Appetite Changes (+loss of appetite). absent: Abdominal Pain , Diarrhea, Nausea, Vomiting Genitourinary Female: Normal. absent: Dysuria, Frequency, Hematuria, Urine Output Changes Musculoskeletal: Normal. absent: Back Pain, Neck Pain Skin: Normal. absent: Rash Neurological: Normal. absent: Headache, Dizziness Endocrine: Normal Hemo/Lymphatic: Normal Psychiatric: Normal Physical Exam Vital Signs Reviewed: Yes Vital Signs Temp Pulse Pulse Resp BP Pulse Ox 12/01/16 00:55 114 H 169/89 H 12/01/16 00:10 98.0 F 98 H 16 162/88 H 100 11/30/16 22:27 114 H 11/30/16 22:22 98.2 F 11/30/16 22:20 98.1 F 114 H 16 166/89 H 100 Temperature: Afebrile Blood Pressure: Normal Pulse: Tachycardic Respiratory Rate: Normal Appearance: Positive for: Well-Appearing, Non-Toxic, Comfortable Pain Distress: None Mental Status: Positive for: Alert and Oriented X 3 - Systems Exam Head: Present: Atraumatic, Normocephalic Pupils: Present: PERRL Extroacular Muscles: Present: EOMI Conjunctiva: Present: Normal Mouth: Present: Moist Mucous Membranes Neck: Present: Normal Range of Motion Respiratory/Chest: Present: Clear to Auscultation, Good Air Exchange. No: Respiratory Distress, Accessory Muscle Use Cardiovascular: Present: Normal S1, S2, Tachycardic. No: Murmurs Abdomen: Present: Normal Bowel Sounds. No: Tenderness, Distention, Peritoneal Signs Back: Present: Normal Inspection Upper Extremity: Present: Normal Inspection. No: Cyanosis, Edema Lower Extremity: Present: Normal Inspection. No: Edema Neurological: Present: GCS=15, CN II-XII Intact, Speech Normal Skin: Present: Warm, Dry, Normal Color. No: Rashes Psychiatric: Present: Alert, Oriented x 3, Normal Insight, Normal Concentration Medical Decision Making ED Course and Treatment: 11/30/16 22:21 Impression: 76 year old female complaining of mid-sternal chest pain, palpitations, and loss of appetite. Differential Diagnosis included but are not limited to: ACS vs. PE vs. infectious process vs. chest pain vs. palpitations Plan: -- EKG -- Chest X-ray -- Labs, cardiac enzymes, D-dimer -- Reassess and disposition Prior Visits: Notes and results from previous visits were reviewed. On 11/25/2016, pt was seen in the Emergency department for near-syncope, palpitations, and epigastric burning. Pt was admitted to the hospital for further evaluation. Progress Notes: Reviewed EKG, sinus tachycardia at 127 bpm. Non-specific ST/T wave changes. 11/30/16 23:49 Reviewed radiology, Chest X-ray shows no acute processes. Labs noted, D-dimer:0.58. Will order CTA Chest. 12/01/16 00:[address] Frederick, who is aware and agrees with plan. Accepts pt in to hospital service. Pt will go to Telemetry observation for chest pain and palpitations. Pt is no acute distress. Discussed results and hospital observation plan with pt and family, who are aware and verbalize understanding. - Lab Interpretations Lab Results: 11/30/16 22:30 11/30/16 22:30 Lab Results 11/30/16 22:30: WBC 10.1 D, RBC 3.86, Hgb 11.4 L, Hct 33.2 L, MCV 86.0, MCH 29.5, MCHC 34.3, RDW 13.1, Plt Count 200, MPV 10.3 11/30/16 22:30: PT 10.3, INR 0.95, APTT 27.5, D-Dimer, Quantitative 0.58 H 11/30/16 22:30: Sodium 133, Potassium 4.5, Chloride 96, Carbon Dioxide 26, Anion Gap 16, BUN 20, Creatinine 0.8, Est GFR ( Amer) > 60, Est GFR (Non- Af Amer) > 60, Random Glucose 181 H, Calcium 9.4, Total Bilirubin 0.3, AST 25, ALT 29, Alkaline Phosphatase 94, Lactate Dehydrogenase 618, Total Creatine Kinase 164, Troponin I < 0.01, Total Protein 7.2, Albumin 4.3, Globulin 2.9, Albumin/Globulin Ratio 1.5 I have reviewed the lab results: Yes - RAD Interpretation Radiology Orders: 11/30/16 22:27 CHEST PORTABLE [RAD] Stat 11/30/16 23:49 ANGIO CHEST PE PROTOCOL [CT] Stat - Medication Orders Current Medication Orders: Hydrochlorothiazide (Microzide) 12.5 mg PO DAILY ANGLE Sodium Chloride (Sodium Chloride 0.9%) 1,000 mls @ 100 mls/hr IV .Q10H ANGLE Last Admin: 12/01/16 00:56 Dose: 100 mls/hr Lisinopril (Zestril) 20 mg PO DAILY ANGLE Pantoprazole Sodium (Protonix Inj) 40 mg IVP DAILY ANGLE Spironolactone (Aldactone) 25 mg PO DAILY ANGLE Discontinued Medications Aspirin (Aspirin) 325 mg PO ONCE STA Stop: 12/01/16 00:13 Last Admin: 12/01/16 00:55 Dose: 325 mg Aspirin (Aspirin Chewable) 81 mg PO STAT ANGLE Stop: 12/01/16 00:46 Iodixanol (Visipaque 320 Mg/Ml 100 Ml) Confirm Administered Dose 100 ml IV .STK- MED ONE Stop: 12/01/16 01:54 Metoprolol Tartrate (Lopressor) 25 mg PO ONCE STA Stop: 12/01/16 00:13 Last Admin: 12/01/16 00:55 Dose: 25 mg - Scribe Statement The provider has reviewed the documentation as recorded by the Frida Sanchez Provider Scribe Attestation: All medical record entries made by the Scribe were at my direction and personally dictated by me. I have reviewed the chart and agree that the record accurately reflects my personal performance of the history, physical exam, medical decision making, and the department course for this patient. I have also personally directed, reviewed, and agree with the discharge instructions and disposition. Disposition/Present on Arrival - Present on Arrival Any Indicators Present on Arrival: No History of DVT/PE: No History of Uncontrolled Diabetes: No Urinary Catheter: No History of Decub. Ulcer: No History Surgical Site Infection Following: None - Disposition Have Diagnosis and Disposition been Completed?: Yes Diagnosis: Chest pain Disposition: HOSPITALIZED Disposition Time: 00:13 Patient Plan: Observation Patient Problems: Current Active Problems Problem Status Onset Chest pain Acute Condition: STABLE
[2016-11-30 22:50] LABS: HEMOGLOBIN 11.4 gm/dL (12.0-16.0); MEAN CORPUSCULAR HEMOGLOBIN 29.5 pg (25.0-35.0); MEAN CORPUSCULAR HGB CONC 34.3 g/dl (31.0-37.0); MEAN PLATELET VOLUME 10.3 fl (7.0-11.0); RBC 3.86 10^6/uL (3.5-6.1); RED CELL DISTRIBUTION WIDTH 13.1 % (11.5-14.5); WHITE BLOOD COUNT 10.1 10^3/ul (4.5-11.0)
[2016-11-30 23:00] LABS: ALB/GLOB RATIO 1.5 (1.1-1.8); ALBUMIN 4.3 g/dL (3.0-4.8); ALT/SGPT 29 U/L (7-56); AST/SGOT 25 U/L (15-39); BLOOD UREA NITROGEN 20 mg/dL (7-21); CALCIUM 9.4 mg/dL (8.4-10.5); GFR AFRICAN-AMERICAN > 60; GFR NON-AFRICAN AMERICAN > 60
[2016-11-30 23:03] LABS: INR 0.95 (0.93-1.08); PARTIAL THROMBOPLASTIN TIME 27.5 Seconds (23.7-30.8); PROTHROMBIN TIME 10.3 Seconds (9.9-11.8)
[2016-11-30 23:06] LABS: D DIMER 0.58 mg/L FEU (0-0.50)
[2016-11-30 23:12] LABS: TROPONIN I < 0.01 ng/mL
[2016-11-30] MEDS ORDERED: Sodium Chloride 0.9% 1,000 ML IV SCH (23:45)
[2016-12-01] MEDS ORDERED: Iodixanol 320 MG/ML 100 ML BOTTLE IV ONE (01:53)
--- NOTE | 2016-12-01 05:30 | CT ---
EXAM: CT Angiography Chest With Intravenous Contrast CLINICAL HISTORY: 76 years old, female; Signs and symptoms; Shortness of breath; Additional info: SOB TECHNIQUE: Axial computed tomographic angiography images of the chest with intravenous contrast using pulmonary embolism protocol. This CT exam was performed using one or more of the following dose reduction techniques: automated exposure control, adjustment of the mA and/or kV according to patient size, and/or use of iterative reconstruction technique. MIP reconstructed images were created and reviewed. Coronal and sagittal reformatted images were created and reviewed. CONTRAST: 96 mL of VISI 320 administered intravenously. COMPARISON: DX - CHEST PORTABLE 11/30/2016 11:06:32 PM FINDINGS: Limitations: Motion artifact - mild. Pulmonary arteries: No definite pulmonary embolism. Aorta: No aneurysm. No dissection. Lungs: Mild atelectasis/scarring. 1.3 x 0.8 x 1.7 cm airspace opacity with few internal calcifications within LEFT upper lobe. Few calcified granulomas. Few pulmonary nodules, up to 0.6 cm, largest located within RIGHT middle lobe. Pleural space: No significant effusion. No pneumothorax. Heart: Mild cardiomegaly. No significant pericardial effusion. Bones/joints: No acute fracture. No dislocation. Soft tissues: Unremarkable. Lymph nodes: No pathologically enlarged lymph nodes. IMPRESSION: 1. No definite CT evidence of pulmonary embolism. 2. AMARILYS opacity. DDX: Atelectasis/scarring, pneumonia, neoplasm. Followup as clinically warranted. 3. Pulmonary nodules, nonspecific. Followup as clinically warranted. 4. Incidental/non-acute findings are described above.
--- NOTE | 2016-12-01 07:29 | RAD ---
HISTORY: chest pain COMPARISON: 11/25/2016 and 11/13/2016 FINDINGS: LUNGS: The linear atelectasis and/or scarring left upper lung zone is faintly suggested on the 11/13/2016 study. No interval more extensive consolidation suggested. Small sub cm multiple bilateral nodular opacities are present - many of which resemble granulomas. Note of a angio chest PE protocol from just apply 10/26/2016 is also noted please note that CT report for further findings PLEURA: No significant pleural effusion identified, no pneumothorax apparent. CARDIOVASCULAR: Mild cardiomegaly OSSEOUS STRUCTURES: No significant abnormalities. VISUALIZED UPPER ABDOMEN: Normal. OTHER FINDINGS: None. IMPRESSION: Linear discoid atelectasis and/or scarring left upper lung zone -suggested the -to some extent previously. No more extensive consolidation or other interval consolidation suggested. Multiple sub cm pulmonary nodules - many resemble granulomas. Please note the same-day CT chest angio study Mild cardiomegaly
[2016-12-01 11:40] LABS: T4 8.4 ug/dL (5.5-11.0)
[2016-12-01 11:53] LABS: T3 1.13 ng/mL (0.97-1.69)
--- NOTE | 2016-12-01 17:29 | CARD ---
APPROVED REPORT EKG Measurement Heart [id number] [place] [id number] <Conclusion> Normal sinus rhythm Normal ECG
--- NOTE | 2016-12-01 17:35 | CP.PCM.PN ---
Subjective - Date & Time of Evaluation Date of Evaluation: 12/01/16 Time of Evaluation: 10:00 - Subjective Subjective: patient was seen and examined at bedside with the and two daughters around. The daughters provided translation. The patient denies any chest pain/ burning, headaches, weakness, leg pain, chills, fevers, n/v/d. states that she needs her meds adjusted despite of her having her first episode of chest burning before any meds were changed by Dr. Acosta. Anxiety was discussed with the pt and the family agreed that the pt worries a lot but the pt denied it, and said that the episodes happen to her when she's relaxed as well. Thyroid causes were also discussed and results were pending. Possible GERD was also discussed, but the pt denied any association with food or laying down. It was discussed that the pt would be able to stay overnight if Dr. De La Cruz could do the stress test tomorrow AM rather than 8 to rule out any cardiac causes. Objective - Vital Signs/Intake and Output Vital Signs (last 24 hours): Temp Pulse Resp BP Pulse Ox 97.9 F 68 18 135/70 97 12/01/16 12:00 12/01/16 12:00 12/01/16 12:00 12/01/16 12:00 12/01/16 06:30 Intake and Output: 12/01/16 12/01/16 06:59 18:59 Intake Total 1000 Balance 1000 - Medications Medications: Current Medications Hydrochlorothiazide (Microzide) 12.5 mg PO DAILY [facility] Sodium Chloride (Sodium Chloride 0.9%) 1,000 mls @ 75 mls/hr IV .[id number] ANGLE Last Admin: 12/01/16 00:56 Dose: 100 mls/hr Lisinopril (Zestril) 20 mg PO DAILY [facility] Pantoprazole Sodium (Protonix Inj) 40 mg IVP DAILY [facility] Spironolactone (Aldactone) 25 mg PO DAILY ANGLE - Labs Labs: PT 10.3 Seconds (9.9-11.8) 11/30/16 22:30 INR 0.95 (0.93-1.08) 11/30/16 22:30 APTT 27.5 Seconds (23.7-30.8) 11/30/16 22:30 - Constitutional Appears: Non-toxic, No Acute Distress - Head Exam Head Exam: ATRAUMATIC, NORMAL INSPECTION, NORMOCEPHALIC - Eye Exam Eye Exam: EOMI, Normal appearance, PERRL Pupil Exam: NORMAL ACCOMODATION - ENT Exam ENT Exam: Mucous Membranes Moist, Normal Exam - Neck Exam Neck Exam: Normal Inspection - Respiratory Exam Respiratory Exam: Clear to Ausculation Bilateral, NORMAL BREATHING PATTERN. absent: Accessory Muscle Use, Chest Wall Tenderness, Rales, Rhonchi, Wheezes, Respiratory Distress, Stridor - Cardiovascular Exam Cardiovascular Exam: RRR, +S1, +S2. absent: Gallop, JVD, Rubs, Murmur - GI/Abdominal Exam GI & Abdominal Exam: Soft, Normal Bowel Sounds. absent: Distended, Guarding, Rigid, Tenderness, Organomegaly, Rebound - Extremities Exam Extremities Exam: Full ROM, Normal Inspection. absent: Calf Tenderness, Joint Swelling, Pedal Edema, Tenderness - Neurological Exam Neurological Exam: Alert, Awake, Oriented x3 - Psychiatric Exam Psychiatric exam: Normal Affect, Normal Mood - Skin Skin Exam: Normal Color, Warm. absent: Cyanosis, Diaphoretic, Pallor Assessment and Plan - Assessment and Plan (Free Text) Assessment: Ms. Sindhu Maradiaga is a 76yo ([place]se-speaking only) F PMHx HTN, HLD, migraine and arthritis presented to the [facility] ED with complaints of chest burning. EKG done in ED showed Sinus tachycardia. Troponins neg x3. Carotid dopplers (11/14): B/L 20-39% prox ICA stenoses. CT Head (11/13): no acute intracranial hemorrhage; scattered foci present indicating small vessel ischemic dz; slight atrophy. ECHO (11/15): EF 71%; mild-mod AR and MR. 1. Chest pain 2. HTN Plan: 1. Chest pain - Tele for observation - D-Dimer 0.58 - CTA Chest: no evidence of PE, AMARILYS opacity (atelectasis vs PNA), RML pulm nodules (<0.6cm) - f/u EKG: NSR - Dr. De La Cruz agreed to do stress test tomorrow AM (KEEP NPO AFTER MIDNIGHT) - Cardio consult - Thyroid panel WNL 2. HTN - continue Lisinopril 20mg and HCTZ 12.5 daily, Aldactone 25mg, ASA Dispo: D/C tomorrow after stress test. Repeat CT Chest in 2mos PPX: PTX/SCDs Patient was seen, evaluated and discussed with attending, Dr. Danilo Singh
--- NOTE | 2016-12-01 17:39 | CARD ---
APPROVED REPORT EKG Measurement Heart [id number] <Conclusion> Sinus tachycardia ST abnormality,nonspecific Abnormal ECG
[2016-12-02 06:12] VITALS: RESP 18; O2SAT 96
[2016-12-02 06:34] LABS: MEAN CELL VOLUME 86.3 fL (80.0-105.0); MEAN CORPUSCULAR HEMOGLOBIN 28.8 pg (25.0-35.0); MEAN CORPUSCULAR HGB CONC 33.3 g/dl (31.0-37.0); RBC 4.17 10^6/uL (3.5-6.1); RED CELL DISTRIBUTION WIDTH 13.3 % (11.5-14.5); WHITE BLOOD COUNT 7.8 10^3/ul (4.5-11.0)
[2016-12-02] MEDS ORDERED: Aminophylline 25 mg/ml Inj ONE (08:30)
[2016-12-02 17:14] VITALS: TEMP 98.1
--- NOTE | 2016-12-02 19:57 | CARD ---
APPROVED REPORT Protocol: LEXISCAN Test Type: Lexiscan Sestamibi Stress Test Attending Physician: Dr. Nimesh Diaz Referring Physician: Dr. Tali Carrasco/Sam Test Indications: Chest Pain. Height:5 ft 1 in Weight:120lbs Medications: HCTZ,Zestril, Protonix, Aldactone Medical History: 76 y/o woman with chest pain, HBP and HLD. Target HR: 143 bpm Resting ECG: RSR Resting Heart Rate: 76 bpm Resting Blood Pressure: 130/80mmHg Submaximum (85%): 122 bpm PROCEDURE Pharmacologic stress testing was performed using 0.4mg per 5ml of regadenoson given intravenously over 7-10 seconds. POST EXERCISE Reason for Termination: Protocol completed Target HR: No Max HR: 114 bpm 99% of Maximum Predicted HR: 143 bpm Exercise duration: 05:08 min:sec, 0 Stage Exercise capacity: 1.0METs Max Blood Pressure: 130/80mmHg Blood Pressure response to exercise: Normal Heart Rate response to exercise: Normal Chest Pain: No, None Angina index: 0 Arrhythmia: No, None ST Change: No, None Deviation: 0 mm INTERPRETATION Stress EKG Conclusion: Lexiscan nuclear stress test which was negative for chest pain, ischemia and arrhythmia. Nuclear scans pending. Signed by Nimesh Diaz Electronically Approved: 12/02/2016 11:56:06 EXAM: Myocardial Perfusion REST/STRESS Stress Test Type: Pharmacologic Imaging Protocol Rest Spect myocardial perfusion imaging was performed in supine position 45 minutes following the injection of 10.5 mCi of Tc-99 Myoview. At peak stress, the patient was injected intravenously with 30.9mCi of Tc-99 tetrofosmin after an infusion time of 0 minutes and 10 seconds. Gated Stress Spect was performed 80 minutes after intravenous Tc-99 Myoview injection. The images were gated to evaluate regional wall motion and calculate ventricular ejection fraction.Images were reconstructed using backfilter projection method in short horizontal and verticle long axis. Spect slices were generated. LV Perfusion The quality of the study is good. The left ventricle is normal in size. The right ventricle is unremarkable. The lung uptake is within normal limits. The distribution of tracer reveals normal uptake pattern throughout the LV myocardium on the stress study. The rest myocardial perfusion study shows no significant change. Wall Motion Wall motion study shows good contractility of the left ventricle. LVEF = 77%. Conclusion 1. Normal SPECT myocardial perfusion study. 2. Normal gated wall motion of the left ventricle.
[2016-12-02 21:18] VITALS: BP 138/77; PULSE 77
== END 2016-12-02 22:08 | disposition home or self-care (01) ==
LOC: ED 22:06 → ERH 12-01 00:10 → 2RNO 12-01 06:17
PROVIDERS: ADMIT Hospitalist; ATTEND Internal Medicine
DX: R07.9 Chest pain, unspecified (principal); I10 Essential (primary) hypertension; E78.5 Hyperlipidemia, unspecified; M19.90 Unspecified osteoarthritis, unspecified site; G43.909 Migraine, unspecified, not intractable, without status migrainosus
CPT/HCPCS: 36415; 71010; 71275; 78452; 80053; 82550; 83615; 83735; 84100; 84436; 84443; 84480; 84484; 85027; 85378; 85610; 85730; 93005; 93017; 99285; A9502; C9113; G0378; J7040; Q9967

== ENCOUNTER 2018-04-26 13:52 | Observation (INO) | payer MEDICARE, OTHER ==
[2018-04-26 14:03] VITALS: BMI 22.1
--- NOTE | 2018-04-26 14:12 | ED PDOC ---
Arrival/HPI - General Chief Complaint: Palpitations Time Seen by Provider: 04/26/18 13:54 Historian: Patient - History of Present Illness Narrative History of Present Illness (Text): 04/26/18 14:06 77 year old female, with past medical history of hypertension and hyperlipidemia, presents to the ED from PMD's office for evaluation of tachycardia prior to arrival. Patient reports visiting her PMD for lower extremity cramps when she was made aware of tachycardia and was subsequently referred to the ED for evaluation. Patient is a poor historian but denies any somatic complaints. Patient denies any fever, chills, chest pain, shortness of breath, headache, dizziness or any other complaints. Family at bedside without any complaints. Time/Duration: Prior to Arrival Symptom Onset: Gradual Symptom Course: Unchanged Activities at Onset: Light Context: Other (PMD's office) Past Medical History - Provider Review Nursing Documentation Reviewed: Yes - Infectious Disease Hx of Infectious Diseases: None - Tetanus Immunization Tetanus Immunization: Unknown - Reproductive Menopause: Yes - Cardiac Hx Cardiac Disorders: Yes Hx Hypertension: Yes - Pulmonary Hx Respiratory Disorders: No - Neurological Hx Neurological Disorder: Yes Hx Dizziness: Yes Hx Migraine: Yes - HEENT Hx HEENT Disorder: Yes Hx Cataracts: Yes (b/l cataract sx) - Renal Hx Renal Disorder: No - Endocrine/Metabolic Hx Endocrine Disorders: No - Hematological/Oncological Hx Blood Disorders: No - Integumentary Hx Dermatological Disorder: No - Musculoskeletal/Rheumatological Hx Arthritis: Yes Hx Osteoarthritis: Yes - Gastrointestinal Hx Gastrointestinal Disorders: No - Genitourinary/Gynecological Hx Genitourinary Disorders: No - Psychiatric Hx Anxiety: Yes Hx Substance Use: No - Surgical History Other/Comment: left breat lump removed benign - Anesthesia Hx Anesthesia: Yes Hx Anesthesia Reactions: No Hx Malignant Hyperthermia: No Family/Social History - Physician Review Nursing Documentation Reviewed: Yes Family/Social History: Unknown Family HX Smoking Status: Never Smoked Hx Alcohol Use: No Hx Substance Use: No Allergies/Home Meds Allergies/Adverse Reactions: Allergies Penicillins Allergy (Verified 03/16/17 16:08) RASH pcn Allergy (Uncoded 03/16/17 16:08) RASH Home Medications: Home Meds Medication Instructions Recorded Confirmed Aspirin [Adult Aspirin] 81 mg PO DAILY 04/26/18 04/26/18 Diltiazem HCl [Cardizem Cd] 180 mg PO DAILY 04/26/18 04/26/18 RX: Pravastatin Sodium [Pravachol] 40 mg PO DAILY 04/26/18 04/26/18 Review of Systems - Physician Review All systems were reviewed & negative as marked: Yes - Review of Systems Constitutional: absent: Fevers Respiratory: absent: SOB, Cough Cardiovascular: Other (Tachycardia). absent: Chest Pain Gastrointestinal: absent: Abdominal Pain, Diarrhea, Nausea, Vomiting Genitourinary Female: absent: Dysuria, Urine Output Changes Musculoskeletal: absent: Back Pain, Neck Pain Skin: absent: Rash Neurological: absent: Headache, Dizziness Physical Exam Vital Signs Reviewed: Yes Vital Signs Pulse Resp BP Pulse Ox 04/26/18 13:55 110 H 18 156/89 H 100 Blood Pressure: Normal Pulse: Tachycardic Respiratory Rate: Normal Appearance: Positive for: Well-Appearing, Non-Toxic, Comfortable Pain Distress: None Mental Status: Positive for: Alert and Oriented X 3 - Systems Exam Head: Present: Atraumatic, Normocephalic Pupils: Present: PERRL Extroacular Muscles: Present: EOMI Conjunctiva: Present: Normal Respiratory/Chest: Present: Clear to Auscultation, Good Air Exchange. No: Respiratory Distress, Accessory Muscle Use Cardiovascular: Present: Regular Rate and Rhythm, Normal S1, S2. No: Murmurs Abdomen: No: Tenderness, Distention, Peritoneal Signs Upper Extremity: Present: Normal Inspection. No: Cyanosis, Edema Lower Extremity: Present: Normal Inspection. No: Edema Neurological: Present: GCS=15, CN II-XII Intact, Speech Normal Skin: Present: Warm, Dry, Normal Color. No: Rashes Psychiatric: Present: Alert, Oriented x 3, Anxious Medical Decision Making ED Course and Treatment: 04/26/18 14:06 Impression: 77 year old female presents to the ED for evaluation of tachycardia. Plan: -- EKG -- Labs -- Urinalysis -- US of Lower Extremity -- Reassess and disposition Prior Visits: Notes and results from previous visits were reviewed. Progress Notes: 04/26/18 14:06 EKG: Ordered, reviewed, and independently interpreted the EKG. Rate : 116 BPM Rhythm : Sinus Tachycardia 04/26/18 15:37 CT of Chest reviewed by radiologist, shows: Unremarkable CT pulmonary angiogram. No pulmonary embolus. 12/19/18 17:[address] gutierrez, states prefers overnight obs. reports hr in office 140. accpeted hospitlaist. - RAD Interpretation Radiology Orders: 04/26/18 14:06 DUPLEX LOWER EXTRM VEIN BILAT [US] Stat Labor Gang Supervisor: Radiologist - EKG Interpretation Interpreted by ED Physician: Yes Type: 12 lead EKG - Scribe Statement The provider has reviewed the documentation as recorded by the Scribe Anny Oneill. All medical record entries made by the Scribe were at my direction and personally dictated by me. I have reviewed the chart and agree that the record accurately reflects my personal performance of the history, physical exam, medical decision making, and the department course for this patient. I have also personally directed, reviewed, and agree with the discharge instructions and disposition. Disposition/Present on Arrival - Present on Arrival Any Indicators Present on Arrival: No History of DVT/PE: No History of Uncontrolled Diabetes: No Urinary Catheter: No History of Decub. Ulcer: No History Surgical Site Infection Following: None - Disposition Have Diagnosis and Disposition been Completed?: Yes Diagnosis: Palpitation Disposition: HOSPITALIZED Disposition Time: 15:00 Condition: STABLE
[2018-04-26 14:21] LABS: BASO # 0.03 K/mm3 (0.0-2.0); BASO % 0.4 % (0.0-3.0); GRAN # 5.05 (1.4-6.5); HEMOGLOBIN 13.7 g/dL (12.0-16.0); LYMPH # 1.6 (1.2-3.4); LYMPH % 22.4 % (22.0-35.0); MEAN CELL VOLUME 86.8 fl (80.0-105.0); MEAN CORPUSCULAR HEMOGLOBIN 29.1 pg (25.0-35.0); MEAN CORPUSCULAR HGB CONC 33.5 g/dl (31.0-37.0); MEAN PLATELET VOLUME 10.6 fl (7.0-11.0); MONO # 0.3 (0.1-0.6); MONO % 4.2 % (1.0-6.0); RBC 4.71 10^6/uL (3.5-6.1); RED CELL DISTRIBUTION WIDTH 12.5 % (11.5-14.5); WHITE BLOOD COUNT 6.9 10^3/uL (4.5-11.0)
[2018-04-26 14:32] LABS: ALB/GLOB RATIO 1.2 (1.1-1.8); ALBUMIN 4.9 g/dL (3.0-4.8); ALT/SGPT 24 U/L (7-56); AST/SGOT 28 U/L (14-36); BLOOD UREA NITROGEN 20 mg/dL (7-21); CALCIUM 9.7 mg/dL (8.4-10.5); GFR NON-AFRICAN AMERICAN > 60; PARTIAL THROMBOPLASTIN TIME 29.1 Seconds (25.1-36.5); PROTHROMBIN TIME 11.4 SECONDS (9.4-12.5)
[2018-04-26 14:43] LABS: TROPONIN I < 0.01 ng/mL
[2018-04-26] MEDS ORDERED: Iohexol 350 MG/100 ML VIAL ONE (14:47)
--- NOTE | 2018-04-26 15:26 | CT ---
Date of service: 04/26/2018 PROCEDURE: CT Chest with contrast (Pulmonary Angiogram) HISTORY: elevated dimer, tachycardia COMPARISON: None available. TECHNIQUE: Axial computed tomography images were obtained of the chest in the pulmonary arterial phase of enhancement. Coronal and sagittal reformatted images were created and reviewed. Intravenous contrast dose: 100 cc of Omni 350 Radiation dose: Total exam DLP = 157.33 mGy-cm. This CT exam was performed using one or more of the following dose reduction techniques: Automated exposure control, adjustment of the mA and/or kV according to patient size, and/or use of iterative reconstruction technique. FINDINGS: PULMONARY ARTERIES: Unremarkable. No pulmonary embolism. AORTA: No acute findings. No thoracic aortic aneurysm. No aortic atherosclerotic calcification or mural plaque present. LUNGS: There is a calcified scar in the left upper lobe anteriorly. There is a small nodule along the major fissure in the right upper lobe. This measures 6 mm PLEURAL SPACES: Unremarkable. No effusion or pneumothorax. HEART: Unremarkable. No cardiomegaly. No significant pericardial effusion. LYMPH NODES: No lymphadenopathy. BONES, CHEST WALL: Unremarkable. No fracture or destructive lesion OTHER FINDINGS: Unremarkable. IMPRESSION: Unremarkable CT pulmonary angiogram. No pulmonary embolus.
--- NOTE | 2018-04-26 15:55 | US ---
HISTORY: Leg pain and swelling. Evaluate for DVT PHYSICIAN(S): Jamari Sosa MD. TECHNIQUE: Duplex sonography and color-flow Doppler with graded compression were used to evaluate the deep venous systems of both lower extremities. FINDINGS: The visualized deep venous systems of both lower extremities are sonographically normal and compressible. Normal wave forms and augmentation are seen. There is no sonographic evidence for deep venous thrombosis in the visualized segments of both lower extremities. IMPRESSION: No sonographic evidence for deep venous thrombosis in the visualized segments of both lower extremities.
[2018-04-26 16:08] LABS: URINE APPEARANCE CLEAR (CLEAR); URINE BILIRUBIN NEGATIVE (NEGATIVE); URINE BLOOD TRACE-INTACT (NEGATIVE); URINE COLOR LIGHT YELLOW (YELLOW); URINE GLUCOSE (UA) NEGATIVE (NEGATIVE); URINE LEUKOCYTE ESTERASE NEGATIVE Leu/uL (NEGATIVE); URINE PROTEIN NEGATIVE mg/dL (<30 mg/dL); URINE UROBILINOGEN 0.2 E.U./dL (<1 E.U./dL)
[2018-04-26 16:11] LABS: URINE RBC 0 - 2 /hpf (0-2)
[2018-04-26 16:12] LABS: URINE WBC NEGATIVE /hpf (0-6)
--- NOTE | 2018-04-26 16:46 | CP.PCM.HP ---
<Yvon Vasquez - Last Filed: 04/26/18 16:38> History of Present Illness - History of Present Illness History of Present Illness: Medicine History and Physical for Hospitalist Service, Dr. Adelaida Vasquez DO PGY-1 This is a 77 y o female with PMhx HTN, HLD, thyroid disease who presented to the ED with tachycardia and elevated blood pressure. States that she was sent to the ED by her PMD Dr. Acosta because of her abnormal vitals in the clinic. Pt admits to having burning sensation in her chest that has been intermittent for the past week, and states that is why she went to Dr. Acosta's office. Also states that she measured her blood pressure at home and that it was elevated, but does not remember the blood pressure reading. Denies any inciting factors prior to onset of symptoms. Denies burning sensation worsening after eating or drinking. Denies reflux symptoms. Admits to being compliant with taking her blood pressure and other home medications as prescribed, states she took them at 8 am this morning. Denies shortness of breath, chest pain, palpitations, n/v/d/c, abd pain, urinary complaints, leg edema, or other symptoms. PMhx: HTN, HLD, thyroid disease PSurgHx: b/l cataract surgery Allergies: PCN (rash) Home meds: ASA 81 mg daily, Diltiazem HCl ER 180 mg daily, Pravastatin 40 mg daily Fam hx: denies; states that her mother when she was only 2 years old, unknown cause Soc hx: denies smoking, EtOH or illicit drug use; lives at home with family PMD: Dr. Acosta Present on Admission - Present on Admission Any Indicators Present on Admission: No History of DVT/PE: No History of Uncontrolled Diabetes: No Urinary Catheter: No Decubitus Ulcer Present: No Review of Systems - Constitutional Constitutional: absent: Anorexia, Chills, Fatigue, Fever - EENT Eyes: absent: Change in Vision - Cardiovascular Cardiovascular: absent: Chest Pain, Dyspnea, Dyspnea on Exertion, Edema, Pain Radiating to Arm/Neck/Jaw, Palpitations - Gastrointestinal Gastrointestinal: absent: Abdominal Pain, Change in Bowel Habits, Constipation, Diarrhea, Nausea, Vomiting - Musculoskeletal Musculoskeletal: absent: Abnormal Gait, Back Pain, Joint Swelling, Myalgias - Neurological Neurological: absent: Dizziness, Syncope Past Patient History - Infectious Disease Hx of Infectious Diseases: None - Tetanus Immunizations Tetanus Immunization: Unknown - Past Medical History & Family History Past Medical History?: Yes - Past Social History Smoking Status: Never Smoked - CARDIAC Hx Cardiac Disorders: Yes Hx Hypertension: Yes - PULMONARY Hx Respiratory Disorders: No - NEUROLOGICAL Hx Neurological Disorder: Yes Hx Dizziness: Yes Hx Migraine: Yes - HEENT Hx HEENT Problems: Yes Hx Cataracts: Yes (b/l cataract sx) - RENAL Hx Chronic Kidney Disease: No - ENDOCRINE/METABOLIC Hx Endocrine Disorders: No - HEMATOLOGICAL/ONCOLOGICAL Hx Blood Disorders: No - INTEGUMENTARY Hx Dermatological Problems: No - MUSCULOSKELETAL/RHEUMATOLOGICAL Hx Arthritis: Yes Hx Osteoarthritis: Yes - GASTROINTESTINAL Hx Gastrointestinal Disorders: No - GENITOURINARY/GYNECOLOGICAL Hx Genitourinary Disorders: No - PSYCHIATRIC Hx Anxiety: Yes Hx Substance Use: No - SURGICAL HISTORY Other/Comment: left breat lump removed benign - ANESTHESIA Hx Anesthesia: Yes Hx Anesthesia Reactions: No Hx Malignant Hyperthermia: No Meds Allergies/Adverse Reactions: Allergies Allergy/AdvReac Type Severity Reaction Status Date / Time Penicillins Allergy RASH Verified 03/16/17 16:08 pcn Allergy RASH Uncoded 03/16/17 16:08 Physical Exam - Constitutional Appears: Well, Non-toxic, No Acute Distress - Head Exam Head Exam: ATRAUMATIC, NORMOCEPHALIC - Eye Exam Eye Exam: EOMI, Normal appearance, PERRL - ENT Exam ENT Exam: Mucous Membranes Moist - Respiratory Exam Respiratory Exam: Clear to Auscultation Bilateral, NORMAL BREATHING PATTERN. absent: Rales, Rhonchi, Wheezes, Respiratory Distress - Cardiovascular Exam Cardiovascular Exam: REGULAR RHYTHM, +S1, +S2. absent: Gallop, Rubs, Systolic Murmur - GI/Abdominal Exam GI & Abdominal Exam: Normal Bowel Sounds, Soft. absent: Distended, Guarding, Organomegaly, Tenderness - Extremities Exam Extremities exam: Positive for: full ROM, normal capillary refill, normal inspection, pedal pulses present. Negative for: calf tenderness, joint swelling, pedal edema - Back Exam Back exam: FULL ROM, NORMAL INSPECTION - Neurological Exam Neurological exam: Alert, CN II-XII Intact, Normal Gait, Oriented x3, Reflexes Normal - Skin Skin Exam: Dry, Intact, Normal Color, Warm Results - Vital Signs Recent Vital Signs: Last Vital Signs Temp 98.2 F 04/26/18 14:11 Pulse 85 04/26/18 15:17 Resp 18 04/26/18 15:17 BP 167/90 H 04/26/18 15:17 Pulse Ox 99 04/26/18 15:17 - Labs Result Diagrams: 04/26/18 13:54 04/26/18 13:54 Labs: Laboratory Results - last 24 hr 04/26/18 04/26/18 04/26/18 13:54 13:54 13:54 WBC 6.9 RBC 4.71 Hgb 13.7 D Hct 40.9 MCV 86.8 MCH 29.1 MCHC 33.5 RDW 12.5 Plt Count 242 MPV 10.6 Gran % 73.0 H Lymph % (Auto) 22.4 Henderson % (Auto) 4.2 Eos % (Auto) 0.0 L Baso % (Auto) 0.4 Gran # 5.05 Lymph # (Auto) 1.6 Henderson # (Auto) 0.3 Eos # (Auto) 0.0 Baso # (Auto) 0.03 PT 11.4 INR 1.00 APTT 29.1 D-Dimer, Quantitative 303 H Sodium 139 Potassium 3.6 Chloride 102 Carbon Dioxide 28 Anion Gap 13 BUN 20 Creatinine 0.8 Est GFR ( Amer) > 60 Est GFR (Non-Af Amer) > 60 Random Glucose 113 H Calcium 9.7 Magnesium 2.1 Total Bilirubin 0.3 AST 28 ALT 24 Alkaline Phosphatase 156 H D Lactate Dehydrogenase 597 Total Creatine Kinase 154 Troponin I < 0.01 Total Protein 8.9 H Albumin 4.9 H Globulin 4.0 Albumin/Globulin Ratio 1.2 Urine Color Urine Appearance Urine pH Ur Specific [place] Urine Protein Urine Glucose (UA) Urine Ketones Urine Blood Urine Nitrate Urine Bilirubin Urine Urobilinogen Ur Leukocyte Esterase Urine RBC Urine WBC Ur Epithelial Cells 04/26/18 16:00 WBC RBC Hgb Hct MCV MCH MCHC RDW Plt Count MPV Gran % Lymph % (Auto) Henderson % (Auto) Eos % (Auto) Baso % (Auto) Gran # Lymph # (Auto) [place] # (Auto) Eos # (Auto) Baso # (Auto) PT INR APTT D-Dimer, Quantitative Sodium Potassium Chloride Carbon Dioxide Anion Gap BUN Creatinine Est GFR ( Amer) Est GFR (Non-Af Amer) Random Glucose Calcium Magnesium Total Bilirubin AST ALT Alkaline Phosphatase Lactate Dehydrogenase Total Creatine Kinase Troponin I Total Protein Albumin Globulin Albumin/Globulin Ratio Urine Color Light yellow Urine Appearance Clear Urine pH 8.0 Ur Specific [place] 1.010 Urine Protein Negative Urine Glucose (UA) Negative Urine Ketones Negative Urine Blood Trace-intact H Urine Nitrate Negative Urine Bilirubin Negative Urine Urobilinogen 0.2 Ur Leukocyte Esterase Negative Urine RBC 0 - 2 Urine WBC Negative Ur Epithelial Cells None Assessment & Plan - Assessment and Plan (Free Text) Assessment: 77 y o female with PMhx HTN, HLD who presented to the ED with tachycardia and elevated blood pressure. Admitted for observation, r/o ACS as etiology. Plan: Tachycardia/HTN -Admit to tele -Pt asymptomatic, not complaining of burning sensation in chest currently -Improved since work-up in ED -Most recent vitals: BP 140/73, P 74 -Trop neg x1, f/u repeat x2 @20:00, @2:00 -Cardiology consulted (Dr. Camejo), recs appreciated -C/w home med Diltiazem HCl ER 180 mg daily -C/w home med ASA daily -CT angio chest: neg for PE -Doppler U/s of bilateral LEs: neg for DVT -EKG in ED NSR, no acute St-t wave changes noted -A1c ordered -Will f/u tomorrow am labs Hx HLD -C/w home med Pravastatin daily -Lipid panel ordered Hx thyroid disease -Pt not on any medication currently -TSH ordered Diet: HHD DVT/GI ppx: SCDs/Protonix Pt seen, examined with, and plan discussed with Dr. Mills, attending physician. Yvon Vasquez DO PGY-1, Dialysis Equipment Technician Pager #[phone] <Adelaida Mills R - Last Filed: 04/27/18 07:48> Results - Vital Signs Recent Vital Signs: Last Vital Signs Temp 98.5 F 04/27/18 06:00 Pulse 69 04/27/18 06:00 Resp 20 04/27/18 06:00 BP 136/77 04/27/18 06:00 Pulse Ox 97 04/27/18 06:00 - Labs Result Diagrams: 04/27/18 06:00 04/27/18 06:00 Labs: Laboratory Results - last 24 hr 04/26/18 04/26/18 04/26/18 13:54 13:54 13:54 WBC 6.9 RBC 4.71 Hgb 13.7 D Hct 40.9 MCV 86.8 MCH 29.1 MCHC 33.5 RDW 12.5 Plt Count 242 MPV 10.6 Gran % 73.0 H Lymph % (Auto) 22.4 Henderson % (Auto) 4.2 Eos % (Auto) 0.0 L Baso % (Auto) 0.4 Gran # 5.05 Lymph # (Auto) 1.6 Henderson # (Auto) 0.3 Eos # (Auto) 0.0 Baso # (Auto) 0.03 PT 11.4 INR 1.00 APTT 29.1 D-Dimer, Quantitative 303 H Sodium 139 Potassium 3.6 Chloride 102 Carbon Dioxide 28 Anion Gap 13 BUN 20 Creatinine 0.8 Est GFR ( Amer) > 60 Est GFR (Non-Af Amer) > 60 Random Glucose 113 H Calcium 9.7 Phosphorus Magnesium 2.1 Total Bilirubin 0.3 AST 28 ALT 24 Alkaline Phosphatase 156 H D Lactate Dehydrogenase 597 Total Creatine Kinase 154 Troponin I < 0.01 Total Protein 8.9 H Albumin 4.9 H Globulin 4.0 Albumin/Globulin Ratio 1.2 Triglycerides Cholesterol LDL Cholesterol Direct HDL Cholesterol TSH 3rd Generation Urine Color Urine Appearance Urine pH Ur Specific [place] Urine Protein Urine Glucose (UA) Urine Ketones Urine Blood Urine Nitrate Urine Bilirubin Urine Urobilinogen Ur Leukocyte Esterase Urine RBC Urine WBC Ur Epithelial Cells 04/26/18 04/26/18 04/27/18 16:00 19:55 02:01 WBC RBC Hgb Hct MCV MCH MCHC RDW Plt Count MPV Gran % Lymph % (Auto) Henderson % (Auto) Eos % (Auto) Baso % (Auto) Gran # Lymph # (Auto) [place] # (Auto) Eos # (Auto) Baso # (Auto) PT INR APTT D-Dimer, Quantitative Sodium Potassium Chloride Carbon Dioxide Anion Gap BUN Creatinine Est GFR ( Amer) Est GFR (Non-Af Amer) Random Glucose Calcium Phosphorus Magnesium Total Bilirubin AST ALT Alkaline Phosphatase Lactate Dehydrogenase Total Creatine Kinase Troponin I < 0.01 < 0.01 Total Protein Albumin Globulin Albumin/Globulin Ratio Triglycerides Cholesterol LDL Cholesterol Direct HDL Cholesterol TSH 3rd Generation Urine Color Light yellow Urine Appearance Clear Urine pH 8.0 Ur Specific [place] 1.010 Urine Protein Negative Urine Glucose (UA) Negative Urine Ketones Negative Urine Blood Trace-intact H Urine Nitrate Negative Urine Bilirubin Negative Urine Urobilinogen 0.2 Ur Leukocyte Esterase Negative Urine RBC 0 - 2 Urine WBC Negative Ur Epithelial Cells None 04/27/18 04/27/18 04/27/18 06:00 06:00 06:00 WBC 6.4 RBC 4.59 Hgb 13.3 Hct 40.2 MCV 87.6 MCH 29.0 MCHC 33.1 RDW 12.8 Plt Count 259 MPV 11.0 Gran % 65.9 Lymph % (Auto) 28.5 Henderson % (Auto) 5.0 Eos % (Auto) 0.0 L Baso % (Auto) 0.6 Gran # 4.18 Lymph # (Auto) 1.8 Henderson # (Auto) 0.3 Eos # (Auto) 0.0 Baso # (Auto) 0.04 PT INR APTT D-Dimer, Quantitative Sodium 140 Potassium 4.2 Chloride 101 Carbon Dioxide 31 Anion Gap 12 BUN 20 Creatinine 0.9 Est GFR ( Amer) > 60 Est GFR (Non-Af Amer) > 60 Random Glucose 92 Calcium 9.7 Phosphorus 3.6 Magnesium 2.2 Total Bilirubin 0.5 AST 27 ALT 21 Alkaline Phosphatase 128 H Lactate Dehydrogenase Total Creatine Kinase Troponin I Total Protein 8.1 Albumin 4.4 Globulin 3.7 Albumin/Globulin Ratio 1.2 Triglycerides 107 Cholesterol 221 H LDL Cholesterol Direct 140 H HDL Cholesterol 56 TSH 3rd Generation 10.90 H Urine Color Urine Appearance Urine pH Ur Specific [place] Urine Protein Urine Glucose (UA) Urine Ketones Urine Blood Urine Nitrate Urine Bilirubin Urine Urobilinogen Ur Leukocyte Esterase Urine RBC Urine WBC Ur Epithelial Cells Attending/Attestation - Attestation I have personally seen and examined this patient.: Yes I have fully participated in the care of the patient.: Yes I have reviewed all pertinent clinical information: Yes Notes (Text): Patient seen and examined by me with resident at 3:50 PM on 04/26/18. Case including HPI, physical exam, and assessment and plan discussed with resident. Agree with above with following additions/corrections. Patient is 77-year-old female with past medical history significant for hypertension, "thyroid problem," and hyperlipidemia that presents to the emergency room with tachycardia from her primary care doctor's office. stranding supervisor Kaitlyn [phone] used for translation. Patient states that she was sent from her doctor's office for elevated blood pressure and fast heart rate. Patient states that she went to her primary care doctor, Dr. Acosta, today because she was having cramps in her feet and she felt like they were getting red. States for the past week she has also been having "burning" in her chest that comes and goes. Patient did not try any medications for this at home. She states that happens randomly. No associated chest pain. She states that she does have periods of palpitations. Patient was unable to provide any other history on her current symptoms. Patient denies any burning in her chest currently. No shortness of breath. No headaches or dizziness. No fevers or chills. No nausea, vomiting, or abdominal pain. No dysuria. No diarrhea or constipation. She states that she has 2 bowel movements daily. No change in vision. 12 point review of systems reviewed by me. Please see above HPI, all other systems negative. Family history: Mother when patient was at the age of 2, patient is unsure of why. Father of unknown causes. Social history: She lives with her grandson. She denies any tobacco, alcohol, or drug use. Physical exam: General: Awake and alert sitting up in bed in no acute distress HEENT: Normocephalic, atraumatic. Extraocular muscles intact, pupils equal and reactive, no scleral icterus. Oropharynx is pink and moist. No pharyngeal erythema or exudate appreciated. Neck is supple. Hearing grossly intact. Ears and nose externally unremarkable. Cardiovascular: Regular rhythm. Normal S1 and S2.No murmurs, rubs, or gallops appreciated Pulmonary: Normal respiratory effort. No rhonchi, rales, or wheezing appreciated. Gastrointestinal: Soft, nondistended. Nontender. Positive bowel sounds all 4 quadrants. No guarding. Musculoskeletal: Moves all extremities. No calf tenderness. No edema appreciated. No CVA tenderness. No erythema noted on bilateral feet. Central nervous system: AAO x3, cranial nerves II through XII grossly intact. 5/5 muscle strength all extremities. Dermatologic: Skin warm and dry. Assessment and plan: Patient is 77-year-old female with past medical history significant for hypertension, "thyroid problem," and hyperlipidemia that presents to the emergency room with tachycardia from her primary care doctor's office. 1. Tachycardia. Palpitations. Troponin within normal limits. Patient not tachycardic at time of exam. Follow up serial troponins. Follow up TSH. Cardiology consulted, recommendations appreciated. Continue ASA and Cardizem. Patient currently asymptomatic. Bilateral lower extremity venous Dopplers were negative for DVT. CTA chest per radiologist showed unremarkable CT pulmonary angiogram, no pulmonary embolus. 2. Hypertension. Continue home Cardizem. 3. Hypercholesterolemia. She takes pravastatin at home. Placed on Lipitor here. 4. History of "thyroid problems." Follow up TSH. 5. GI/DVT prophylaxis. Protonix/SCDs. 6. Patient is a full code Case was discussed in detail with the patient and patient's family at bedside regarding current diagnosis and treatment plan. All questions were answered. Case also discussed with program advocate. Dr. Camejo.
[2018-04-26] MEDS ORDERED: Pneumococcal 23-Valent Vaccine IM ONE (23:14)
[2018-04-26] MEDS ORDERED: Influenza Vaccine 60 mcg/0.5 mL SYR (4YR UP) IM ONE (23:14)
[2018-04-27 00:33] VITALS: O2SAT 97
--- NOTE | 2018-04-27 00:51 | CON ---
DATE: 04/26/2018 SERVICE: Cardiology. REASON FOR CONSULTATION: Cardiac evaluation, admitted for palpitation after being seen by Dr. Acosta and sent to the ER. BRIEF CLINICAL HISTORY: This is a 77-year-old Portuguese-speaking female, granddaughter is at the bedside and son-in-law at the bedside with past medical history significant for more than 20 years ago of hypertension, hyperlipidemia, and arthritis who was complaining of palpitation, went to see Dr. Acosta, who sent to the ER for further evaluation and overnight stay for observation. The patient denies any chest pain. Denies any shortness of breath, but still complaining of burning pain in the epigastrium, history of gastroesophageal reflux, and feel acid in the mouth. PAST MEDICAL HISTORY: Significant for hypertension and arthritis. SOCIAL HISTORY: Denies smoking. Denies any history of alcohol abuse. RECENT CARDIAC WORKUP: As follows; the patient had echocardiography on 11/15/2016 that shows preserved LV function with ejection fraction of 55%, qory-gb-[id number] MR, cpei-yo-kagcnkrs AR, [id number]-yy-[id number] , and RV systolic pressure of 40. Echo dated 11/15/2016 calculated ejection fraction 71%, RV systolic pressure 40, and again ypyh-ik-aecemtdx aortic regurgitation, dain-rp-idtdlehw mitral regurgitation, ycce-[id number] tricuspid regurgitation dated 11/15/2016. The patient had also a stress test done dated 12/02/2016, that was a Lexiscan, normal perfusion scan, ejection fraction 77%. CURRENT MEDICATIONS: The patient is at home taking Pravachol 40 mg daily, Cardizem 180 mg, and aspirin 81 mg daily. ALLERGIES: TO PENICILLIN. REVIEW OF SYSTEMS: As per HPI. PHYSICAL EXAMINATION: GENERAL: Height of the patient is 5 feet 2 inches, weight of the patient 121 pounds, and body mass index 22 kg/m2. VITAL SIGNS: Temperature afebrile, heart rate 74, and blood pressure 140/73. HEENT: PERRLA. Extraocular muscles intact. NECK: Supple. No carotid bruit or thyromegaly. CHEST: Clear to auscultation. HEART: S1 and S2 regular. ABDOMEN: Soft. EXTREMITIES: Clubbing and cyanosis negative. LABORATORY DATA: Admitting EKG shows sinus tachycardia, rate of 116, and no acute ST-T changes noted. Blood workup: WBC 6.9, hemoglobin , hematocrit 40.9, and platelet count 242. Chemistry shows sodium , potassium 3.6, chloride 102, carbon dioxide 28, anion gap of 13, BUN 20, and creatinine 0.8. Troponin 0.01 negative. IMPRESSION: Atypical chest pain, probably gastroesophageal reflux and palpitation. Recent stress test over a year ago essentially normal. Had no complaint of chest pain. RECOMMENDATIONS: Resume back Cardizem, add low dose of beta-ahmet for better control of blood pressure and heart rate. Followup CPK and troponin. Followup TSH and repeat echo in the morning. Further recommendation will depend on the hospital course. We will follow with you. No complaint of chest pain. The patient is Portuguese speaking; information obtained from the granddaughter who is at bedside and explained the patient above through the daughter. Thank you Dr. Acosta/Dr. Mills for providing us the opportunity in taking care of the patient, Kika Maradiaga. Kathrin Camejo MD
[2018-04-27] MEDS ORDERED: Pantoprazole 20 mg EC Tab PO SCH ×2 (06:00→10:00)
[2018-04-27 06:28] LABS: BASO # 0.04 K/mm3 (0.0-2.0); BASO % 0.6 % (0.0-3.0); GRAN # 4.18 (1.4-6.5); GRAN % 65.9 % (50.0-68.0); HEMOGLOBIN 13.3 g/dL (12.0-16.0); LYMPH # 1.8 (1.2-3.4); LYMPH % 28.5 % (22.0-35.0); MEAN CELL VOLUME 87.6 fl (80.0-105.0); MEAN CORPUSCULAR HGB CONC 33.1 g/dl (31.0-37.0); MONO # 0.3 (0.1-0.6); RBC 4.59 10^6/uL (3.5-6.1); RED CELL DISTRIBUTION WIDTH 12.8 % (11.5-14.5); WHITE BLOOD COUNT 6.4 10^3/uL (4.5-11.0)
[2018-04-27 06:40] LABS: ALB/GLOB RATIO 1.2 (1.1-1.8); ALBUMIN 4.4 g/dL (3.0-4.8); ALT/SGPT 21 U/L (7-56); AST/SGOT 27 U/L (14-36); BLOOD UREA NITROGEN 20 mg/dL (7-21); CALCIUM 9.7 mg/dL (8.4-10.5); GFR NON-AFRICAN AMERICAN > 60; HDL CHOLESTEROL 56 mg/dL (29-60)
[2018-04-27 06:51] LABS: LDL CHOLESTEROL 140 mg/dL (0-129)
--- NOTE | 2018-04-27 09:04 | CARD ---
APPROVED REPORT Date of service: 04/26/2018 EKG Measurement Heart [id number] <Conclusion> Sinus tachycardia LVH by voltage Prolonged QTc
--- NOTE | 2018-04-27 09:20 | CP.PCM.PN ---
Subjective - Date & Time of Evaluation Date of Evaluation: 04/27/18 Time of Evaluation: 06:25 - Subjective Subjective: Awake, alert, no distress Reason for consultation and follow up: Cardiac evaluation of tachycardia, palpitations. History of hypertension,hyperlipidemia and GERD, arthritis. Seen and examined by me and Dr. Camejo Objective - Vital Signs/Intake and Output Vital Signs (last 24 hours): Temp Pulse Resp BP Pulse Ox 98.5 F 69 20 136/77 97 04/27/18 06:00 04/27/18 06:00 04/27/18 06:00 04/27/18 06:00 04/27/18 06:00 Intake and Output: 04/27/18 04/27/18 06:59 18:59 Intake Total 240 Balance 240 - Medications Medications: Current Medications Aspirin (Ecotrin) 81 mg PO DAILY [facility] Atorvastatin Calcium (Lipitor) 10 mg PO DIN [facility] Last Admin: 04/26/18 18:12 Dose: 10 mg Hydralazine HCl (Apresoline) 10 mg PO QID PRN PRN Reason: for sbp >170 Metoprolol Tartrate (Lopressor) 25 mg PO BID [facility] Last Admin: 04/26/18 18:12 Dose: 25 mg Pantoprazole Sodium (Protonix Ec Tab) 20 mg PO DAILY [facility] - Labs Labs: 04/27/18 06:00 04/27/18 06:00 PT 11.4 SECONDS (9.4-12.5) 04/26/18 13:54 INR 1.00 04/26/18 13:54 APTT 29.1 Seconds (25.1-36.5) 04/26/18 13:54 - Constitutional Appears: Non-toxic, No Acute Distress - Head Exam Head Exam: NORMAL INSPECTION, NORMOCEPHALIC - Eye Exam Eye Exam: Normal appearance Pupil Exam: NORMAL ACCOMODATION - ENT Exam ENT Exam: Mucous Membranes Moist, Normal Exam - Respiratory Exam Respiratory Exam: Decreased Breath Sounds, Clear to Ausculation Bilateral, NORMAL BREATHING PATTERN - Cardiovascular Exam Cardiovascular Exam: +S1, +S2 - GI/Abdominal Exam GI & Abdominal Exam: Soft, Normal Bowel Sounds - Neurological Exam Neurological Exam: Alert, Awake - Psychiatric Exam Psychiatric exam: Normal Affect, Normal Mood - Skin Skin Exam: Dry, Normal Color, Warm Assessment and Plan - Assessment and Plan (Free Text) Assessment: A 77 year old female who came in to the ER due to tachycardia and elevated blood pressure. History of hypertension,hyperlipidemia, GERD, arthritis, thyroid disease. Also complaints of having burning sensation in her chest that has been intermittent for the past week, and states that is why she went to Dr. Acosta's office. Troponin x 3 normal, EKG sinus tachycardia 116/min, no ischemic changes, CT of chest negative for emboli. Atypical chest pain. For Echo today to evaluate LV function. Plan: Denies chest pain or shortness of breath For Echo today to evaluate LV function Heart rate controlled Blood pressure controlled Elevated TSH 10.9 Started on Synthroid 50 mcg daily On ASA 81 mg daily, Lipitor 10 mg daily, Lopressor 25 mg BID, Cardizem 180 mg daily Continue current medications Continue current treatment Will follow up Plan and treatment discussed with Dr. Camejo
--- NOTE | 2018-04-27 09:25 | CARD ---
APPROVED REPORT Date of service: 04/27/2018 EKG Measurement Heart [id number] <Conclusion> Normal sinus rhythm LVH by voltage Prolonged QTc No change except the rate is slower
[2018-04-27] MEDS ORDERED: diltiaZEM 180 mg/24 Hours CD Cap PO SCH ×2 (10:00)
--- NOTE | 2018-04-27 12:46 | PN ---
DATE: 04/27/2018 SEX OF THE PATIENT: Female. AGE OF THE PATIENT: 77. TYPE OF DICTATION: Progress note. REASON FOR CONSULTATION AND FOLLOWUP: Cardiac evaluation admitted with palpitation and for evaluation. The patient denies any chest pain, shortness of breath, or any palpitation. 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 Patient no further arrhythmic episode noted. Heart rate at one point was 57, now is 100. Troponin remains negative. No evidence of acute [place]. TSH 10.90, hypothyroidism. LDL 140, total cholesterol 221. This note is addition to dictated by the nurse practitioner, Destiny Avalos. The patient has a stress in 1999, was essentially negative. Last episode [id number]-ii-[id number] mitral regurgitation, kbsv-ca-rgjbreux tricuspid regurgitation, ubwp-[id number] aortic regurgitation dated 11/15/2016. Ejection fraction 71%. The patient has also a stress test dated 12/02/2016 with a Lexiscan was essentially negative for ischemia. Ejection fraction 77%. RECOMMENDATION: We will get echo to assess left ventricular function. Cardizem increased to 180 mg daily and also continue low-dose beta-ahmet. Continue Cardizem 180 mg. Continue beta-ahmet 25 mg p.o. twice daily. We will start low dose of Synthroid 50 mcg. We will discuss with team taking care of the patient and if this remains stable after the echo possibly discharge home today. Followup with Dr. Acosta and followup with us in the office. Also, the patient has high elevated LDL, so probably we will increase the atorvastatin to probably at least 20 mg or equivalent. Thank you Dr. Mills for providing us the opportunity in taking care of the patient, Sindhu Maradiaga. Kathrin Camejo MD
[2018-04-27 13:19] VITALS: BP 132/71; PULSE 107; RESP 21; TEMP 97.6
--- NOTE | 2018-04-27 14:19 | CARD ---
APPROVED REPORT Date of service: 04/27/2018 EXAM: Two-dimensional and M-mode echocardiogram with Doppler and color Doppler. INDICATION LV Function:SystolicDiastolic 2D DIMENSIONS Left Atrium (2D)3.3 (1.6-4.0cm)IVSd1.2 (0.7-1.1cm) LVDd4.3 (3.9-5.9cm)PWd1.1 (0.7-1.1cm) LVDs2.8 (2.5-4.0cm)FS (%) 34.6 % LVEF (%)64.1 (>50%) M-Mode DIMENSIONS Aortic Root2.80 (2.2-3.7cm)Aortic Cusp Exc.1.60 (1.5-2.0cm) Aortic Valve AoV Peak Ctwcyeaz135.0cm/Jamarcus Peak GR.9mmHg Mitral Valve MV E Lrxrfoth68.7cm/sMV A Parnldjh720.0cm/sE/A ratio0.6 TDI E/Lateral E'0.0E/Medial E'0.0 Tricuspid Valve TR Peak Riqxkcjc079sk/sRAP [id number] Peak Gr.12mmHg [id number] LEFT VENTRICLE The left ventricle is normal size. There is borderline to mild concentric left ventricular hypertrophy. The left ventricular function is normal.EF-60-65% There is normal LV segmental wall motion. Transmitral Doppler flow pattern is Grade III-reversible restrictive diastolic dysfunction. No left ventricle thrombus noted on this study. There is no ventricular septal defect visualized. There is no left ventricular aneurysm. There is no mass noted in the left ventricle. RIGHT VENTRICLE The right ventricle is normal size. There is normal right ventricular wall thickness. The right ventricular systolic function is normal. ATRIA The left atrium size is normal. The right atrium size is normal. The interatrial septum is intact with no evidence for an atrial septal defect. AORTIC VALVE The aortic valve is thickened but opens well. There is mild aortic regurgitation. There is no aortic valvular stenosis. There is no aortic valvular vegetation. MITRAL VALVE The mitral valve is thickened but opens well. Mitral annular calcification is mild. Mitral regurgitation is moderate. The mitral regurgitant jet is eccentric, posteriorly directed. There is no mitral valve stenosis. There is no evidence of mitral valve prolapse. TRICUSPID VALVE The tricuspid valve leaflets are thickened , but open well. There is trace to mild tricuspid regurgitation.RVSP-22 mmof hg. There is no tricuspid valve stenosis. There is no tricuspid valve prolapse or vegetation. PULMONIC VALVE The pulmonary valve is normal in structure. There is trace pulmonic valvular regurgitation. There is no pulmonic valvular stenosis. GREAT VESSELS The aortic root is normal in size. The ascending aorta is normal in size. The pulmonary artery is normal. The IVC is normal in size and collapses >50% with inspiration. PERICARDIAL EFFUSION There is no pleural effusion. There is no pericardial effusion. <Conclusion> Normal chamber Size. EF_60-65% There is mild aortic regurgitation. Mitral regurgitation is moderate. The mitral regurgitant jet is eccentric, posteriorly directed. There is trace to mild tricuspid regurgitation.RVSP-22 mmof hg. There is trace pulmonic valvular regurgitation. The IVC is normal in size and collapses >50% with inspiration. There is no pericardial effusion. No Vegetation or thrombus noted.
--- NOTE | 2018-04-27 14:28 | CP.PCM.DIS ---
<Yvon Vasquez - Last Filed: 04/27/18 14:29> Provider - Provider Date of Admission: 04/26/18 15:43 Attending physician: Adelaida Mills DO Primary care physician: NO PRIMARY CARE PROVIDER Consults: 04/26/18 16:32 Cardiology Consult Routine Comment: Consulting Provider: Kathrin Camejo Consulting Physician: Kathrin Camejo Reason for Consult: tachycardia, elevated bp, burning in chest 04/26/18 23:01 Social Work Referral Routine Comment: dc plan Physician Instructions: Reason For Exam: eval 04/26/18 23:14 Case Management Referral Routine Comment: Physician Instructions: Reason For Exam: Reason for Referral: Discharge Planning Time Spent in preparation of Discharge (in minutes): 45 Diagnosis - Discharge Diagnosis (1) Palpitation Status: Resolved (2) Chest pain Status: Resolved (3) Near syncope Status: Resolved (4) Subclinical hypothyroidism Status: Acute Hospital Course - Lab Results Lab Results: Most Recent Lab Values WBC 6.4 10^3/uL (4.5-11.0) 04/27/18 06:00 RBC 4.59 10^6/uL (3.5-6.1) 04/27/18 06:00 Hgb 13.3 g/dL (12.0-16.0) 04/27/18 06:00 Hct 40.2 % (36.0-48.0) 04/27/18 06:00 MCV 87.6 fl (80.0-105.0) 04/27/18 06:00 MCH 29.0 pg (25.0-35.0) 04/27/18 06:00 MCHC 33.1 g/dl (31.0-37.0) 04/27/18 06:00 RDW 12.8 % (11.5-14.5) 04/27/18 06:00 Plt Count 259 10^3/uL (120.0-450.0) 04/27/18 06:00 MPV 11.0 fl (7.0-11.0) 04/27/18 06:00 Gran % 65.9 % (50.0-68.0) 04/27/18 06:00 Lymph % (Auto) 28.5 % (22.0-35.0) 04/27/18 06:00 [place] % (Auto) 5.0 % (1.0-6.0) 04/27/18 06:00 Eos % (Auto) 0.0 % (1.5-5.0) L 04/27/18 06:00 Baso % (Auto) 0.6 % (0.0-3.0) 04/27/18 06:00 Gran # 4.18 (1.4-6.5) 04/27/18 06:00 Lymph # (Auto) 1.8 (1.2-3.4) 04/27/18 06:00 [place] # (Auto) 0.3 (0.1-0.6) 04/27/18 06:00 Eos # (Auto) 0.0 (0.0-0.7) 04/27/18 06:00 Baso # (Auto) 0.04 K/mm3 (0.0-2.0) 04/27/18 06:00 PT 11.4 SECONDS (9.4-12.5) 04/26/18 13:54 INR 1.00 04/26/18 13:54 APTT 29.1 Seconds (25.1-36.5) 04/26/18 13:54 D-Dimer, Quantitative 303 ng/mlDDU (0-243) H 04/26/18 13:54 Sodium 140 mmol/L (132-148) 04/27/18 06:00 Potassium 4.2 mmol/L (3.6-5.0) 04/27/18 06:00 Chloride 101 mmol/L (98-107) 04/27/18 06:00 Carbon Dioxide 31 mmol/L (21-33) 04/27/18 06:00 Anion Gap 12 (10-20) 04/27/18 06:00 BUN 20 mg/dL (7-21) 04/27/18 06:00 Creatinine 0.9 mg/dl (0.7-1.2) 04/27/18 06:00 Est GFR ( Amer) > 60 04/27/18 06:00 Est GFR (Non-Af Amer) > 60 04/27/18 06:00 Random Glucose 92 mg/dL (70-110) 04/27/18 06:00 Hemoglobin A1c 5.6 % (4.2-6.5) 04/27/18 06:00 Calcium 9.7 mg/dL (8.4-10.5) 04/27/18 06:00 Phosphorus 3.6 mg/dL (2.5-4.5) 04/27/18 06:00 Magnesium 2.2 mg/dL (1.7-2.2) 04/27/18 06:00 Total Bilirubin 0.5 mg/dL (0.2-1.3) 04/27/18 06:00 AST 27 U/L (14-36) 04/27/18 06:00 ALT 21 U/L (7-56) 04/27/18 06:00 Alkaline Phosphatase 128 U/L (38-126) H 04/27/18 06:00 Lactate Dehydrogenase 597 U/L (333-699) 04/26/18 13:54 Total Creatine Kinase 154 U/L (35-230) 04/26/18 13:54 Troponin I < 0.01 ng/mL 04/27/18 02:01 Total Protein 8.1 g/dL (5.8-8.3) 04/27/18 06:00 Albumin 4.4 g/dL (3.0-4.8) 04/27/18 06:00 Globulin 3.7 gm/dL 04/27/18 06:00 Albumin/Globulin Ratio 1.2 (1.1-1.8) 04/27/18 06:00 Triglycerides 107 mg/dL (35-160) 04/27/18 06:00 Cholesterol 221 mg/dL (130-200) H 04/27/18 06:00 LDL Cholesterol Direct 140 mg/dL (0-129) H 04/27/18 06:00 HDL Cholesterol 56 mg/dL (29-60) 04/27/18 06:00 Free T4 1.33 ng/dL (0.78-2.19) 04/27/18 08:00 TSH 3rd Generation 10.90 mIU/mL (0.46-4.68) H 04/27/18 06:00 Urine Color Light yellow (YELLOW) 04/26/18 16:00 Urine Appearance Clear (CLEAR) 04/26/18 16:00 Urine pH 8.0 (4.7-8.0) 04/26/18 16:00 Ur Specific [place] 1.010 (1.005-1.035) 04/26/18 16:00 Urine Protein Negative mg/dL (<30 mg/dL) 04/26/18 16:00 Urine Glucose (UA) Negative mg/dL (NEGATIVE) 04/26/18 16:00 Urine Ketones Negative mg/dL (NEGATIVE) 04/26/18 16:00 Urine Blood Trace-intact (NEGATIVE) H 04/26/18 16:00 Urine Nitrate Negative (NEGATIVE) 04/26/18 16:00 Urine Bilirubin Negative (NEGATIVE) 04/26/18 16:00 Urine Urobilinogen 0.2 E.U./dL (<1 E.U./dL) 04/26/18 16:00 Ur Leukocyte Esterase Negative Marisa/uL (NEGATIVE) 04/26/18 16:00 Urine RBC 0 - 2 /hpf (0-2) 04/26/18 16:00 Urine WBC Negative /hpf (0-6) 04/26/18 16:00 Ur Epithelial Cells None /hpf (0-5) 04/26/18 16:00 - Hospital Course Hospital Course: HPI at time of admission: "This is a 77 y o female with PMhx HTN, HLD, thyroid disease who presented to the ED with tachycardia and elevated blood pressure. States that she was sent to the ED by her PMD Dr. Acosta because of her abnormal vitals in the clinic. Pt admits to having burning sensation in her chest that has been intermittent for the past week, and states that is why she went to Dr. Acosta's office. Also states that she measured her blood pressure at home and that it was elevated, but does not remember the blood pressure reading. Denies any inciting factors prior to onset of symptoms. Denies burning sensation worsening after eating or drinking. Denies reflux symptoms. Admits to being compliant with taking her blood pressure and other home medications as prescribed, states she took them at 8 am this morning. Denies shortness of breath, chest pain, palpitations, n/v/d/c, abd pain, urinary complaints, leg edema, or other symptoms." Hospital course: Pt was admitted for observation for tachycardia, hypertension, and chest pain, r/o ACS work-up. Troponins were negative x3. Pt was placed on home medications on admission. Dr. Camejo was consulted (Cardiology), who recommended Echo and pt to be started on Metoprolol 25 mg PO bid in addition to her other home medications. TSH was elevated, however T4 was wnl. Pt was asymptomatic on admission. Likely 2/2 to subclinical hypothyroidism, instructed to have repeat TSH done in 6 weeks with her primary care physician. Pt was discharged to home in stable condition on 04/27/18. Instructed to resume home medications as prescribed, and start taking Metoprolol as prescribed. Prescription sent to pt's pharmacy. Instructed to follow-up with PMD Dr. Acosta within 3-5 days of hospital discharge. Instructed to follow-up with Dr. Camejo (Cardiology) within 3-5 days of hospital discharge. Pertinent imaging: EKG 04/26: NSR, no acute St-t wave changes noted LE U/s bilateral 04/26: negative for DVT CT angio chest 04/26: negative for PE Echo 04/27: wnl, ejection fraction 60-65% Discharge Exam - Head Exam Head Exam: NORMAL INSPECTION, NORMOCEPHALIC - Eye Exam Eye Exam: EOMI, Normal appearance, PERRL - ENT Exam ENT Exam: Mucous Membranes Moist - Respiratory Exam Respiratory Exam: Clear to PA & Lateral, NORMAL BREATHING PATTERN, UNREMARKABLE. absent: Rales, Rhonchi, Wheezes - Cardiovascular Exam Cardiovascular Exam: REGULAR RHYTHM, +S1, +S2. absent: Gallop, Rubs, Systolic Murmur - Extremities Exam Extremities exam: full ROM, normal capillary refill, normal inspection, pedal pulses present - Neurological Exam Neurological exam: Alert, CN II-XII Intact, Normal Gait, Oriented x3, Reflexes Normal - Skin Skin Exam: Dry, Intact, Normal Color, Warm Discharge Plan - Discharge Medications Prescriptions: RX: Metoprolol Tartrate [Lopressor] 25 mg PO BID #14 tab - Follow Up Plan Condition: STABLE Disposition: [facility] Instructions: Palpitations (DC), Chest Pain (DC), Chest Pain (GEN) Additional Instructions: Por favor, va a la clinica de doctor han (Dr. Acosta) en 3-5 machado despues de admision de hospital para la shanna. Llama por telefono a la clinica de Dr. Camejo (Cardiologista) para la shanna en 3-5 machado. Por favor zay las prescripciones que prescribe. Obtiene las prescripciones en la farmacia de [employer] en [facility]. Necesita rellenar de medicinas con doctor fitoaria, Dr. Acosta. Necesita repitar laboratorio de jyoti de [place] de thyroida en 6 semanas despues de hospital a la oficina de doctor primaria, Dr. Acosta. Tiene symptomas mas mal, llama a doctor primaria or va [facility] Referrals: Kathrin Camejo MD [Staff Provider] - Jeffrey Acosta MD [Staff Provider] - <Adelaida Mills - Last Filed: 04/29/18 14:45> Provider - Provider Date of Admission: 04/26/18 15:43 Attending physician: Adelaida Mills DO Primary care physician: NO PRIMARY CARE PROVIDER Consults: 04/26/18 16:32 Cardiology Consult Routine Comment: Consulting Provider: Kathrin Camejo Consulting Physician: Kathrin Camejo Reason for Consult: tachycardia, elevated bp, burning in chest 04/26/18 23:01 Social Work Referral Routine Comment: dc plan Physician Instructions: Reason For Exam: eval 04/26/18 23:14 Case Management Referral Routine Comment: Physician Instructions: Reason For Exam: Reason for Referral: Discharge Planning Hospital Course - Lab Results Lab Results: Most Recent Lab Values WBC 6.4 10^3/uL (4.5-11.0) 04/27/18 06:00 RBC 4.59 10^6/uL (3.5-6.1) 04/27/18 06:00 Hgb 13.3 g/dL (12.0-16.0) 04/27/18 06:00 Hct 40.2 % (36.0-48.0) 04/27/18 06:00 MCV 87.6 fl (80.0-105.0) 04/27/18 06:00 MCH 29.0 pg (25.0-35.0) 04/27/18 06:00 MCHC 33.1 g/dl (31.0-37.0) 04/27/18 06:00 RDW 12.8 % (11.5-14.5) 04/27/18 06:00 Plt Count 259 10^3/uL (120.0-450.0) 04/27/18 06:00 MPV 11.0 fl (7.0-11.0) 04/27/18 06:00 Gran % 65.9 % (50.0-68.0) 04/27/18 06:00 Lymph % (Auto) 28.5 % (22.0-35.0) 04/27/18 06:00 [place] % (Auto) 5.0 % (1.0-6.0) 04/27/18 06:00 Eos % (Auto) 0.0 % (1.5-5.0) L 04/27/18 06:00 Baso % (Auto) 0.6 % (0.0-3.0) 04/27/18 06:00 Gran # 4.18 (1.4-6.5) 04/27/18 06:00 Lymph # (Auto) 1.8 (1.2-3.4) 04/27/18 06:00 [place] # (Auto) 0.3 (0.1-0.6) 04/27/18 06:00 Eos # (Auto) 0.0 (0.0-0.7) 04/27/18 06:00 Baso # (Auto) 0.04 K/mm3 (0.0-2.0) 04/27/18 06:00 PT 11.4 SECONDS (9.4-12.5) 04/26/18 13:54 INR 1.00 04/26/18 13:54 APTT 29.1 Seconds (25.1-36.5) 04/26/18 13:54 D-Dimer, Quantitative 303 ng/mlDDU (0-243) H 04/26/18 13:54 Sodium 140 mmol/L (132-148) 04/27/18 06:00 Potassium 4.2 mmol/L (3.6-5.0) 04/27/18 06:00 Chloride 101 mmol/L (98-107) 04/27/18 06:00 Carbon Dioxide 31 mmol/L (21-33) 04/27/18 06:00 Anion Gap 12 (10-20) 04/27/18 06:00 BUN 20 mg/dL (7-21) 04/27/18 06:00 Creatinine 0.9 mg/dl (0.7-1.2) 04/27/18 06:00 Est GFR ( Amer) > 60 04/27/18 06:00 Est GFR (Non-Af Amer) > 60 04/27/18 06:00 Random Glucose 92 mg/dL (70-110) 04/27/18 06:00 Hemoglobin A1c 5.6 % (4.2-6.5) 04/27/18 06:00 Calcium 9.7 mg/dL (8.4-10.5) 04/27/18 06:00 Phosphorus 3.6 mg/dL (2.5-4.5) 04/27/18 06:00 Magnesium 2.2 mg/dL (1.7-2.2) 04/27/18 06:00 Total Bilirubin 0.5 mg/dL (0.2-1.3) 04/27/18 06:00 AST 27 U/L (14-36) 04/27/18 06:00 ALT 21 U/L (7-56) 04/27/18 06:00 Alkaline Phosphatase 128 U/L (38-126) H 04/27/18 06:00 Lactate Dehydrogenase 597 U/L (333-699) 04/26/18 13:54 Total Creatine Kinase 154 U/L (35-230) 04/26/18 13:54 Troponin I < 0.01 ng/mL 04/27/18 02:01 Total Protein 8.1 g/dL (5.8-8.3) 04/27/18 06:00 Albumin 4.4 g/dL (3.0-4.8) 04/27/18 06:00 Globulin 3.7 gm/dL 04/27/18 06:00 Albumin/Globulin Ratio 1.2 (1.1-1.8) 04/27/18 06:00 Triglycerides 107 mg/dL (35-160) 04/27/18 06:00 Cholesterol 221 mg/dL (130-200) H 04/27/18 06:00 LDL Cholesterol Direct 140 mg/dL (0-129) H 04/27/18 06:00 HDL Cholesterol 56 mg/dL (29-60) 04/27/18 06:00 Free T4 1.33 ng/dL (0.78-2.19) 04/27/18 08:00 TSH 3rd Generation 10.90 mIU/mL (0.46-4.68) H 04/27/18 06:00 Urine Color Light yellow (YELLOW) 04/26/18 16:00 Urine Appearance Clear (CLEAR) 04/26/18 16:00 Urine pH 8.0 (4.7-8.0) 04/26/18 16:00 Ur Specific [place] 1.010 (1.005-1.035) 04/26/18 16:00 Urine Protein Negative mg/dL (<30 mg/dL) 04/26/18 16:00 Urine Glucose (UA) Negative mg/dL (NEGATIVE) 04/26/18 16:00 Urine Ketones Negative mg/dL (NEGATIVE) 04/26/18 16:00 Urine Blood Trace-intact (NEGATIVE) H 04/26/18 16:00 Urine Nitrate Negative (NEGATIVE) 04/26/18 16:00 Urine Bilirubin Negative (NEGATIVE) 04/26/18 16:00 Urine Urobilinogen 0.2 E.U./dL (<1 E.U./dL) 04/26/18 16:00 Ur Leukocyte Esterase Negative Marisa/uL (NEGATIVE) 04/26/18 16:00 Urine RBC 0 - 2 /hpf (0-2) 04/26/18 16:00 Urine WBC Negative /hpf (0-6) 04/26/18 16:00 Ur Epithelial Cells None /hpf (0-5) 04/26/18 16:00 Attending/Attestation - Attestation I have personally seen and examined this patient.: Yes I have fully participated in the care of the patient.: Yes I have reviewed all pertinent clinical information, including history, physical exam and plan: Yes Notes (Text): Please note this dc summary is for 04/27/18 Patient seen and examined by me with resident 9:40 AM and prior to discharge on 04/27/18. Case including discharge plan discussed with resident. Agree with above with following additions/corrections. Patient is 77-year-old female with past medical history significant for hypertension, "thyroid problem," and hyperlipidemia that presents to the emergency room with tachycardia from her primary care doctor's office. Please see H&P for full details. Patient was admitted tachycardia, palpitations, hypertension, hypercholes terolemia, and history of thyroid problems. Troponins were within normal limits. TSH 10.90. However, Free T4 1.33. Total cholesterol 221, LDL 40, HDL 56, Triglycerides 107. D-Dimer was 303. CTA chest per radiologist showed unremarkable CT pulmonary angiogram, no pulmonary embolus. Bilateral lower extremity venous Dopplers were negative for DVT. Patient was continued on ASA and Cardizem. Cardiology was consulted, Dr. Camejo. Patient was started on metoprolol with improvement by cardiology. 2-D echo per ldr nurse showed no pleural effusion, no pericardial effusion, normal chamber size, EF 60-65%, mild aortic regurgitation, mitral regurgitation is moderate, mitral regurgitant jet is eccentric, posteriorly directed, trace to mild tricuspid regurgitation, trace pulmonic valvular regurgitation, no vegetation or thrombus noted, grade 3 reversible restrictive diastolic dysfunction. Echo results and case discussed with ldr nurse Dr. Camejo. Per Dr. Camejo, patient is cleared to go home on ASA, cardizem, and metoprolol. Discussed thyroid function panel with ldr nurse. She has subclinical hypothyroidism. She was advised to have repeat blood work done with her primary care doctor prior to starting medication for this. Patient was feeling better and was aksing to go home. Patient was discharged home. On day of discharge, patient stated he was feeling much better. Patient denied any palpitations. No burning in chest per patient. Patient denies any shortness of breath. No chest pain. No abdominal pain. No nausea or vomiting. No headaches or dizziness. No change in vision. No fevers or chills. No dysuria. Physical exam: General: Awake and alert sitting up in bed in no acute distress HEENT: Normocephalic, atraumatic. Extraocular muscles intact, pupils equal and reactive, no scleral icterus. Oropharynx is pink and moist. No pharyngeal erythema or exudate appreciated. Neck is supple. Hearing grossly intact. Ears and nose externally unremarkable. Cardiovascular: Regular rhythm. Normal S1 and S2.No murmurs, rubs, or gallops appreciated Pulmonary: Normal respiratory effort. No rhonchi, rales, or wheezing appreciated. Gastrointestinal: Soft, nondistended. Nontender. Positive bowel sounds all 4 quadrants. No guarding. Musculoskeletal: Moves all extremities. No calf tenderness. No edema appreciated. No CVA tenderness. No erythema noted on bilateral feet. Central nervous system: AAO x3, CN II-XII grossly intact. 5/5 muscle strength all extremities. Dermatologic: Skin warm and dry. Please see chart for full details. Follow up instructions: Patient to follow up with her PMD within 3-5 days. Patient to follow up with Dr. Camejo within 3- 5 days. Patient to have repeat blood work done to check her thyroid levels with her PMD. All instructions explained to the patient abnd family at bedside in Czech in detail. They all understand and agree to all instructions. Written instructions also given. Time spent in discharging the patient including chart review, medication reconciliation, discussion with the patient and patient's family, medical charge entry specialist, consultants, and nursing staff was approximately 40 minutes.
[2018-04-28] MEDS ORDERED: Levothyroxine 50 MCG TAB PO SCH (06:00)
== END 2018-04-27 19:18 | disposition home or self-care (01) ==
LOC: ED 13:52 → ERH 15:43 → 2RNO 17:00
PROVIDERS: ADMIT Hospitalist; ATTEND Hospitalist
DX: R00.0 Tachycardia, unspecified (principal); E78.5 Hyperlipidemia, unspecified; I10 Essential (primary) hypertension; E78.00 Pure hypercholesterolemia, unspecified; K21.9 Gastro-esophageal reflux disease without esophagitis; I08.3 Combined rheumatic disorders of mitral, aortic and tricuspid valves; E03.9 Hypothyroidism, unspecified; Z79.82 Long term (current) use of aspirin; Z98.42 Cataract extraction status, left eye; Z98.41 Cataract extraction status, right eye
CPT/HCPCS: 36415; 71275; 80053; 80061; 81001; 82550; 83036; 83615; 83735; 84100; 84439; 84443; 84484; 85025; 85378; 85610; 85730; 93005; 93306; 93970; 99283; G0378; Q9967

== ENCOUNTER 2018-05-10 15:06 | Outpatient (CLI) | payer MEDICARE | END 2018-05-10 15:07 | disposition home or self-care (01) | LOC: RAD 15:06 | DX: R35.0 Frequency of micturition (principal); I10 Essential (primary) hypertension ==

== ENCOUNTER 2018-06-14 06:43 | Outpatient (CLI) | payer MEDICARE | END 2018-06-14 06:44 | disposition home or self-care (01) | LOC: CARDIO 06:43 ==